=== PATIENT | female | born 1995 | race Caucasian/White ===

== ENCOUNTER → 2022-04-06 | Outpatient (CLI) | payer OTHER, SELFPAY ==
[2022-04-14 08:55] LABS: HPV Reflexed? NOT INDICATED
== END | disposition home or self-care (01) ==
LOC: LABSPEC 11:13
PROVIDERS: PCP Internal Medicine; Visit Provider Obstetrics & Gynecology
DX: Z12.4 Encounter for screening for malignant neoplasm of cervix (principal)
CPT/HCPCS: 88175; G0145

== ENCOUNTER → 2022-10-03 | Outpatient (CLI) | payer OTHER, SELFPAY ==
[2022-10-05 08:12] LABS: Chlamydia By Nucleic Acid AMP Negative (Negative); Gonococcus By Nucleic Acid AMP Negative (Negative)
== END | disposition home or self-care (01) ==
LOC: LABSPEC 11:12
PROVIDERS: Referring Provider Obstetrics & Gynecology; Visit Provider Obstetrics & Gynecology
DX: O09.90 Supervision of high risk pregnancy, unspecified, unspecified trimester (principal); Z3A.00 Weeks of gestation of pregnancy not specified
CPT/HCPCS: 87086; 87491; 87591

== ENCOUNTER → 2022-10-10 | Outpatient (CLI) | payer OTHER, SELFPAY ==
[2022-10-10 08:28] LABS: Absolute Lymphocyte Count 1.72 X10^3/uL (0.83-4.51); Absolute Neutrophil Count 8.5 X10^3/uL (2.0-7.7); Basophil# 0.03 X10^3/uL; Basophil% 0.3 % (0-1); Eosinophil# 0.05 X10^3/uL; Eosinophils% 0.5 % (0-5); Hematocrit 39.9 % (37-47); Hemoglobin 13.1 g/dL (12.0-15.0); Lymphocyte # 1.72 X10^3/ul (0.83-4.51); Lymphocyte % 15.7 % (19-41); Mean Corp Hgb Conc 32.8 g/dL (32-36); Mean Corpuscular Hgb 29.6 pg (27.0-32.0); Mean Corpuscular Volume 90.1 fL (81-99); Mean Platelet Vol. 9.5 fl (6.2-12.0); Monocyte# 0.65 X10^3/uL; Monocyte% 5.9 % (0-10); NRBC Flagged by Analyzer 0 % (0-5); Neutrophil # 8.48 X10^3/uL (2.7-7.7); Neutrophil % 77.2 % (47-70); Platelet Count 233 K/mm3 (150-450); RBC Distribution Width CV 13.2 % (11.6-14.6); RBC Distribution Width SD 43.9 fl (35.1-43.9); Red Blood Count 4.43 M/mm3 (4.2-5.4)
[2022-10-10 08:55] LABS: Glucose Challenge Gest 1H 50g 75 mg/dL (70-140)
[2022-10-10 16:06] LABS: HIV - WCH Non-Reactive (Nonreactive); Hepatitis B Surface Antigen Non-Reactive (Nonreactive); Hepatitis C Antibody Non-Reactive (Nonreactive); Rubella IgG Reactive (Nonreactive); Syphilis Antibodies Non-reactive
== END | disposition home or self-care (01) ==
LOC: PAVLAB 08:02
PROVIDERS: Referring Provider Obstetrics & Gynecology; Visit Provider Obstetrics & Gynecology
DX: O09.90 Supervision of high risk pregnancy, unspecified, unspecified trimester (principal); Z3A.00 Weeks of gestation of pregnancy not specified
CPT/HCPCS: 36415; 82950; 85025; 86703; 86762; 86780; 86803; 86850; 86900; 86901; 87340

== ENCOUNTER → 2022-11-22 | Outpatient (CLI) | payer OTHER, SELFPAY ==
--- NOTE | 2022-11-22 14:17 | US_ITS ---
STUDY: SECOND AND THIRD TRIMESTER OBSTETRICAL ULTRASOUND - LIMITED REASON FOR EXAM: Female, 27 years old dating LMP: 08/06/2022 PRIOR ULTRASOUND: None. TECHNIQUE: Transabdominal and Transvaginal TECHNICAL QUALITY: Adequate. FINDINGS: There is a single intrauterine fetus. The fetus is in an transverse lie with the head on the maternal left side. There is demonstrated cardiac activity with a heart rate of 162 bpm. There is a subjectively normal amniotic fluid volume. The largest amniotic fluid pocket measures 5.3 cm. The placenta is posterior and fundal, not low-lying There are Grade 0 placental changes. The cervix was not measured BIOMETRY: BPD: 2.8 cm: 15 weeks, 0 days HC: 10.2 cm: 14 weeks, 5 days AC: 8 cm: 14 weeks, 3 days FL: 1.57 centimeters: 14 weeks, 4 days age by current US: 14 weeks, 4 days. JADA by current US: 05/19/2023. Estimated weight: 99 grams, +/- 15 grams, 4 percentile. US/OB Limited With Biometrics IMPRESSION: Single live intrauterine at 14 weeks, 4 days by current ultrasound with JADA of 05/19/2023. Heart rate of 162 bpm. No suspicious sonographic findings Electronically Signed: Kameron Christianson MD at 21:10 EDT ,
== END | disposition home or self-care (01) ==
LOC: OPUS 14:13
PROVIDERS: Referring Provider Obstetrics & Gynecology; Visit Provider Obstetrics & Gynecology
DX: O36.80X0 Pregnancy with inconclusive fetal viability, not applicable or unspecified (principal); Z3A.00 Weeks of gestation of pregnancy not specified
CPT/HCPCS: 76816

== ENCOUNTER → 2023-02-26 | Outpatient (CLI) | payer OTHER, SELFPAY ==
[2023-02-26 09:19] LABS: Absolute Lymphocyte Count 1.53 X10^3/uL (0.83-4.51); Basophil# 0.03 X10^3/uL; Basophil% 0.2 % (0-1); Eosinophil# 0.09 X10^3/uL; Eosinophils% 0.7 % (0-5); Hematocrit 37.1 % (37-47); Lymphocyte # 1.53 X10^3/ul (0.83-4.51); Lymphocyte % 12.4 % (19-41); Mean Corp Hgb Conc 32.3 g/dL (32-36); Mean Corpuscular Hgb 29.2 pg (27.0-32.0); Mean Corpuscular Volume 90.3 fL (81-99); Mean Platelet Vol. 10.2 fl (6.2-12.0); Monocyte# 0.62 X10^3/uL; NRBC Flagged by Analyzer 0 % (0-5); Neutrophil # 9.98 X10^3/uL (2.7-7.7); Platelet Count 246 K/mm3 (150-450); RBC Distribution Width CV 13.6 % (11.6-14.6); Red Blood Count 4.11 M/mm3 (4.2-5.4); White Blood Count 12.3 K/mm3 (4.4-11.0)
[2023-02-26 09:46] LABS: Glucose Challenge Gest 1H 50g 142 mg/dL (70-140)
[2023-02-26 10:19] LABS: HIV - WCH Non-Reactive (Nonreactive); Syphilis Antibodies Non-reactive
== END | disposition home or self-care (01) ==
LOC: LAB 08:59
PROVIDERS: PCP Internal Medicine; Referring Provider Nurse Practitioner Women's Health; Visit Provider Nurse Practitioner Women's Health
DX: O26.899 Other specified pregnancy related conditions, unspecified trimester (principal); Z67.91 Unspecified blood type, Rh negative; Z3A.00 Weeks of gestation of pregnancy not specified
CPT/HCPCS: 36415; 82950; 85025; 86703; 86780; 86850; 86900; 86901

== ENCOUNTER → 2023-03-05 | Outpatient (CLI) | payer OTHER, SELFPAY ==
--- OUTSIDE RECORDS SUMMARY | 2023-03-05 06:45 | XMS RPT_ITS | CCD ---
Author Name Unknown Address [address] [facility] [address] [place] [address] Organization [facility] Care Team Providers Care Advertising Sales Manager Name Role Phone Clare Yu Unavailable Unavailable Unavailable INGRID ANGEL Attending Unavailable TRINY CASTANEDA Referring Unavailabl e CLARE YU Primary Care Unavailable Medications Completed/Discontinued Medications Medication Drug Class(es) Dates Sig (Normalized) Sig (Original) Apri 0.15-30 MG-MCG Oral Tablet (1 source) Start: 07-31-2019 take 1 tablet by mouth once daily Apri 0.15-30 MG-MCG Oral Tablet TAKE 1 TABLET BY MOUTH EVERY DAY Quantity: 84 Refills: 2 Ordered: 06-Jul-2020 Marin Martin DO Start : 31-Jul-2019 Active doxylamine succinate 25 mg oral tablet (19 sources) Start: 12-24-2020 take 1 tablet by mouth at bedtime Unisom SleepTabs 25 MG Oral Tablet TAKE 1 TABLET AT BEDTIME. Quantity: 30 Refills: 4 Ordered: 24-Dec-2020 Marin Martin DO Start : 24-Dec-2020 Active loratadine 10 mg oral tablet (1 source) take 1 tablet by mouth once daily as needed Loratadine 10 MG Oral Tablet TAKE 1 TABLET DAILY NEEDED. Quantity: 0 Refills: 0 Ordered: 24-Apr-2019 DO Active PNV Plus Multivitamin TABS (20 sources) PNV Plu s Multivitamin TABS Quantity: 0 Refills: 0 Ordered: 24-Dec-2020 DO Active valACYclovir 1000 mg oral tablet (12 sources) Herpesvirus Nucleoside Analog DNA Polymerase Inhibitor, Herpes Simplex Virus Nucleoside Analog DNA Polymerase Inhibitor, Herpes Zoster Virus Nucleoside Analog DNA Polymerase Inhibitor Start: 02-14-2021 take 1 tablet by mouth three times daily valACYclovir HCl - 1 GM Oral Tablet TAKE 1 TABLET 3 TIMES DAILY. Quantity: 21 Refills: 0 Ordered: 14-Feb-2021 Clare Yu DO Start : 14-Feb-2021 Active vitamin b6 50 mg oral tablet (20 sources) Start: 12-24-2020 take 1 tablet by mouth twice daily B-6 50 MG Oral Tablet TAKE 1 TABLET TWICE DAILY. Quantity: 60 Refills: 6 Ordered: 24-Dec-2020 Marin Martin DO Start : 24-Dec-2020 Active Problems Active Problems Problem Classification Problem Date Documented Da te Episodic/Chronic Cancer of cervix (20 sources) Cervical atypism; Translations: [Papanicolaou smear of cervix with atypical squamous cells of undetermined significance (ASC-US)] Episodic Contraceptive and procreative management (20 sources) Patient encounter status; Translations: [Other general counseling and advice on contraceptive management] Episodic Diabetes mellitus without complication (1 source) Abnormal glucose tolerance test; Translations: [Impaired glucose tolerance test (oral)] Episodic Diabetes or abnormal glucose tolerance complicating ; childbirth; or the puerperium (13 sources) Gestational diabetes mellitus; Translations: [Abnormal glucose tolerance of mother, antepartum condition or complication] Episodic Fluid and electrolyte disorders (17 sources) Dehydration; Translations: [Dehydration] Episodic Menstrual disorders (2 sources) Secondary amenorrhea; Translations: [Absence of menstruation] Chronic Other aftercare (1 source) Surgical follow-up; Translations: [Follow-up examination, following surgery, unspecified] Episodic Other complications of ; puerperium affecting management of mother (3 sources) Deliveries by ; Translations: [ delivery, without mention of indication, unspecified as to episode of care or not applicable] Episodic Past or Other Problems Problem Classification Problem Date Documented Date Episodic/Chronic Other complications of (19 sources) RhD negative; Translations: [Other specified complications of , antepartum condition or complication] Resolved: 09-12-2021 Episodic Results Test Name Value Interpretation Reference Range Facil ity Vital Signs Date Time Vital Sign Value Performing Clinician Faci lity 09-12-2021 10:03-0400 Body height 162.56 cm Clare Yu Work Phone: [address] Work Phone: 09-12-2021 10:03-0400 Body mass index (BMI) [Ratio] 25.49 kg/m2 Clare S [employer] Work Phone: [place] [address] [address] Work Phone: 09-12-2021 10:03-0400 Body surface area Derived from formula 1.72 m2 Clare S [employer] Work Phone: [place] [address] [address] Work Phone: 09-12-2021 10:03-0400 Body weight 67.36 kg Clare S [employer] Work Phone: [place] [address] [address] Work Phone: 09-12-2021 10:03-0400 Diastolic blood pressure 80 mm[Hg] Clare S [employer] Work Phone: [place] [address] [address] Work Phone: 09-12-2021 10:03-0400 Systolic blood pressure 110 mm[Hg] Clare S [employer] Work Phone: [place] [address] [address] Work Phone: 08-17-2021 11:15-0400 Body height 162.56 cm Clare S [employer] Work Phone: [place] [address] [address] Work Phone: 08-17-2021 11:15-0400 Body mass index (BMI) [Ratio] 25.92 kg/m2 Clare S [employer] Work Phone: [place] [address] [address] Work Phone: 08-17-2021 11:15-0400 Body surface area Derived from formula 1.74 m2 Clare S [employer] Work Phone: [place] [address] [address] Work Phone: 08-17-2021 11:15-0400 Body weight 68.5 kg Clare S [employer] Work Phone: [place] [address] [address] Work Phone: 08-17-2021 11:15-0400 Diastolic blood pressure 80 mm[Hg] Clare S [employer] Work Phone: [place] [address] [address] Work Phone: 08-17-2021 11:15-0400 Systolic blood pressure 118 mm[Hg] Clare S [employer] Work Phone: [place] [address] [address] Work Phone: 08-01-2021 10:32-0400 Body height 162.56 cm Clare S [employer] Work Phone: [place] [address] [address] Work Phone: 08-01-2021 10:32-0400 Body mass index (BMI) [Ratio] 29.44 kg/m2 Clare S [employer] Work Phone: [place] [address] [address] Work Phone: 08-01-2021 10:32-0400 Body surface area Derived from formula 1.83 m2 Clare S [employer] Work Phone: [place] [address] [address] Work Phone: 08-01-2021 10:32-0400 Body weight 77.8 kg Clare S [employer] Work Phone: [place] [address] [address] Work Phone: 08-01-2021 10:32-0400 Diastolic blood pressure 76 mm[Hg] Clare S [employer] Work Phone: [place] [address] [address] Work Phone: 08-01-2021 10:32-0400 Systolic blood pressure 120 mm[Hg] Clare S [employer] Work Phone: [place] [address] [address] Work Phone: 07-29-2021 10:11-0400 Body height 162.56 cm Lcare S [employer] Work Phone: [place] [address] [address] Work Phone: 07-29-2021 10:11-0400 Body mass index (BMI) [Ratio] 29.06 kg/m2 Clare S [employer] Work Phone: [place] [address] [address] Work Phone: 07-29-2021 10:11-0400 Body surface area Derived from formula 1.82 m2 Clare S [employer] Work Phone: [place] [address] [address] Work Phone: 07-29-2021 10:11-0400 Body weight 76.8 kg Clare S [employer] Work Phone: [place] [address] [address] Work Phone: 07-29-2021 10:11-0400 Diastolic blood pressure 80 mm[Hg] Clare S [employer] Work Phone: [place] [address] [address] Work Phone: 07-29-2021 10:11-0400 Systolic blood pressure 120 mm[Hg] Clare S [employer] Work Phone: [place] [address] [address] Work Phone: 07-22-2021 10:05-0400 Body height 162.56 cm Clare S [employer] Work Phone: [place] [address] [address] Work Phone: 07-22-2021 10:05-0400 Body mass index (BMI) [Ratio] 28.65 kg/m2 Clare S [employer] Work Phone: [place] [address] [address] Work Phone: 07-22-2021 10:05-0400 Body surface area Derived from formula 1.81 m2 Clare S [employer] Work Phone: [place] [address] [address] Work Phone: 07-22-2021 10:05-0400 Body weight 75.7 kg Clare S [employer] Work Phone: [employer] [place] [address] [address] Work Phone: 07-22-2021 10:05-0400 Diastolic blood pressure 82 mm[Hg] Clare S [employer] Work Phone: [place] [address] [address] Work Phone: 07-22-2021 10:05-0400 Systolic blood pressure 126 mm[Hg] Clare S [employer] [facility]: [facility] [employer] Work Phone: 07-15-2021 09:58-0400 Body height 162.56 cm Claer S [employer] Work Phone: [facility] [employer] Work Phone: 07-15-2021 09:58-0400 Body mass index (BMI) [Ratio] 28.46 kg/m2 Clare S [employer] Work Phone: [facility] [employer] Work Phone: 07-15-2021 09:58-0400 Body surface area Derived from formula 1.81 m2 Clare S [employer] Work Phone: [facility] [address] [address] Work Phone: 07-15-2021 09:58-0400 Body weight 75.2 kg Clare S [employer] Work Phone: [facility] [employer] Work Phone: 07-15-2021 09:58-0400 Diastolic blood pressure 80 mm[Hg] Clare S [employer] Work Phone: [employer] [facility] [employer] Work Phone: 07-15-2021 09:58-0400 Systolic blood pressure 120 mm[Hg] Clare S [employer] Work Phone: [facility] [place] [address] [address] Work Phone: 07-08-2021 08:45-0400 Body height 162.56 cm Clare S [employer] Work Phone: [employer] Work Phone: 07-08-2021 08:45-0400 Body mass index (BMI) [Ratio] 28.46 kg/m2 Clare [facility] [employer] Work Phone: [facility] Work Phone: 07-08-2021 08:45-0400 Body surface area Derived from formula 1.81 m2 Clare S [employer] Work Phone: [facility] Work Phone: 07-08-2021 08:45-0400 Body weight 75.2 kg Clare S [employer] Work Phone: [facility] [employer] Work Phone: 07-08-2021 08:45-0400 Diastolic blood pressure 80 mm[Hg] Clare S [employer] Work Phone: [facility] Work Phone: 07-08-2021 08:45-0400 Systolic blood pressure 108 mm[Hg] Clare S [employer] Work Phone: [facility] Work Phone: 07-01-2021 10:03-0400 Body height 162.56 cm Clare S [employer] Work Phone: [place] Work Phone: 07-01-2021 10:03-0400 Body mass index (BMI) [Ratio] 28.34 kg/m2 Clare [facility] [employer] Work Phone: [place] Work Phone: 07-01-2021 10:03-0400 Body surface area Derived from formula 1.8 m2 Clare S [employer] Work Phone: [employer] [place] [address] [address] Work Phone: 07-01-2021 10:03-0400 Body weight 74.9 kg Clare S [employer] Work Phone: [place] [address] [address] Work Phone: 07-01-2021 10:03-0400 Diastolic blood pressure 64 mm[Hg] Clare [facility] [employer] Work Phone: [place] [address] [address] Work Phone: 07-01-2021 10:03-0400 Systolic blood pressure 118 mm[Hg] Clare S [employer] Work Phone: [place] [address] [address] Work Phone: 06-17-2021 10:18-0400 Body height 162.56 cm Clare S [employer] Work Phone: [place] [address] [address] Work Phone: 06-17-2021 10:18-0400 Body mass index (BMI) [Ratio] 27.66 kg/m2 Clare [facility] [employer] Work Phone: [place] [address] [address] Work Phone: 06-17-2021 10:18-0400 Body surface area Derived from formula 1.78 m2 Clare S [employer] Work Phone: [address] Work Phone: 06-17-2021 10:18-0400 Body weight 73.1 kg Clare S [employer] Work Phone: [place] [address] [address] Work Phone: 06-17-2021 10:18-0400 Diastolic blood pressure 64 mm[Hg] Clare S [employer] Work Phone: [place] [address] [address] Work Phone: 06-17-2021 10:18-0400 Systolic blood pressure 118 mm[Hg] Clare [facility] [employer] Work Phone: [place] [address] [address] Work Phone: 06-03-2021 11:06-0400 Body height 162.56 cm Clare S [employer] Work Phone: [place] [address] [address] Work Phone: 06-03-2021 11:06-0400 Body mass index (BMI) [Ratio] 27.62 kg/m2 Clare [facility] [employer] Work Phone: [place] [address] [address] Work Phone: 06-03-2021 11:06-0400 Body surface area Derived from formula 1.78 m2 Clare S [employer] Work Phone: [place] [address] [address] Work Phone: 06-03-2021 11:06-0400 Body weight 73 kg Clare S [employer] Work Phone: [place] [address] [address] Work Phone: 06-03-2021 11:06-0400 Diastolic blood pressure 70 mm[Hg] Clare S [employer] Work Phone: [place] [address] [address] Work Phone: 06-03-2021 11:06-0400 Systolic blood pressure 112 mm[Hg] Clare S [employer] Work Phone: [place] [address] [address] Work Phone: 05-23-2021 11:02-0400 Body height 162.56 cm Clare S [employer] Work Phone: [place] [address] [address] Work Phone: 05-23-2021 11:02-0400 Body mass index (BMI) [Ratio] 27.59 kg/m2 Clare [facility] [employer] Work Phone: [place] [address] [address] Work Phone: 05-23-2021 11:02-0400 Body surface area Derived from formula 1.78 m2 Clare S [employer] Work Phone: [place] [address] [address] Work Phone: 05-23-2021 11:02-0400 Body weight 72.9 kg Clare S [employer] Work Phone: [place] [address] [address] Work Phone: 05-23-2021 11:02-0400 Diastolic blood pressure 78 mm[Hg] Clare S [employer] Work Phone: [place] [address] [address] Work Phone: 05-23-2021 11:02-0400 Systolic blood pressure 112 mm[Hg] Clare S [employer] Work Phone: [place] [address] [address] Work Phone: 05-13-2021 13:52-0400 Body height 162.56 cm Clare S [employer] Work Phone: [place] [address] [address] Work Phone: 05-13-2021 13:52-0400 Body mass index (BMI) [Ratio] 27.49 kg/m2 Clare [facility] [employer] Work Phone: [place] [address] [address] Work Phone: 05-13-2021 13:52-0400 Body surface area Derived from formula 1.78 m2 Clare S [employer] Work Phone: [place] [address] [address] Work Phone: 05-13-2021 13:52-0400 Body weight 72.63 kg Clare S [employer] Work Phone: [place] [address] [address] Work Phone: 05-13-2021 13:52-0400 Diastolic blood pressure 78 mm[Hg] Clare S [employer] Work Phone: [place] [address] [address] Work Phone: 05-13-2021 13:52-0400 Systolic blood pressure 110 mm[Hg] Clare [facility] [employer] Work Phone: [place] [address] [address] Work Phone: 04-15-2021 14:56-0500 Body height 162.56 cm Clare S [employer] Work Phone: [place] [address] [address] Work Phone: 04-15-2021 14:56-0500 Body mass index (BMI) [Ratio] 26.3 kg/m2 Clare [facility] [employer] Work Phone: [place] [address] [address] Work Phone: 04-15-2021 14:56-0500 Body surface area Derived from formula 1.75 m2 Clare S [employer] Work Phone: [place] [address] [address] Work Phone: 04-15-2021 14:56-0500 Body weight 69.5 kg Clare S [employer] Work Phone: [place] [address] [address] Work Phone: 04-15-2021 14:56-0500 Diastolic blood pressure 70 mm[Hg] Clare S [employer] Work Phone: [place] [address] [address] Work Phone: 04-15-2021 14:56-0500 Systolic blood pressure 112 mm[Hg] Clare S [employer] Work Phone: [place] [address] [address] Work Phone: 03-18-2021 14:56-0500 Body height 162.56 cm Clare S [employer] Work Phone: [place] [address] [address] Work Phone: 03-18-2021 14:56-0500 Body mass index (BMI) [Ratio] 25.28 kg/m2 Clare S [employer] Work Phone: [place] [address] [address] Work Phone: 03-18-2021 14:56-0500 Body surface area Derived from formula 1.72 m2 Clare Granados [employer] Work Phone: [address] Work Phone: 03-18-2021 14:56-0500 Body temperature 97.1 [degF] Clare Granados [employer] Work Phone: [address] Work Phone: 03-18-2021 14:56-0500 Body weight 66.8 kg Clare Granados [employer] Work Phone: [address] Work Phone: 03-18-2021 14:56-0500 Diastolic blood pressure 78 mm[Hg] Clare Granados [employer] Phone: [address] Work Phone: 03-18-2021 14:56-0500 Systolic blood pressure 118 mm[Hg] Clare Granados [employer] Work Phone: [address] Work Phone: 02-18-2021 14:58-0500 Body height 162.56 cm Clare Granados [employer] Phone: [employer] [facility] Work Phone: 02-18-2021 14:58-0500 Body mass index (BMI) [Ratio] 24.48 kg/m2 Clare Granados [employer] Work Phone: [employer] Work Phone: 02-18-2021 14:58-0500 Body surface area Derived from formula 1.69 m2 Clare Garnados [employer] Phone: [employer] [facility] Work Phone: 02-18-2021 14:58-0500 Body temperature 95.3 [degF] Clare S [employer] Phone: [facility] Work Phone: 02-18-2021 14:58-0500 Body weight 64.7 kg Clare Granados [employer] Work Phone: [facility] Work Phone: 02-18-2021 14:58-0500 Diastolic blood pressure 60 mm[Hg] Clare S [employer] Work Phone: [facility] Work Phone: 02-18-2021 14:58-0500 Systolic blood pressure 110 mm[Hg] Clare S [employer] Work Phone: [facility] Work Phone: 02-14-2021 15:17-0500 Body height 162.56 cm Clare S [employer] Work Phone: [facility] Work Phone: 02-14-2021 15:17-0500 Body mass index (BMI) [Ratio] 23.75 kg/m2 Clare Granados [employer] Work Phone: [facility] Work Phone: 02-14-2021 15:17-0500 Body surface area Derived from formula 1.67 m2 Clare S [employer] Work Phone: [facility] Work Phone: 02-14-2021 15:17-0500 Body temperature 97.1 [degF] Clare S [employer] Work Phone: [facility] Work Phone: 02-14-2021 15:17-0500 Body weight 62.77 kg Clare S [employer] Work Phone: [facility] Work Phone: 02-14-2021 15:17-0500 Diastolic blood pressure 76 mm[Hg] Clare S [employer] Work Phone: [facility] Work Phone: 02-14-2021 15:17-0500 Heart rate 125 /min Clare Yu [employer] Phone: [facility] Work Phone: 02-14-2021 15:17-0500 SaO2% (BldA) [Mass fraction] 97 % Clare Granados [employer] Phone: [facility] Work Phone: 02-14-2021 15:17-0500 Systolic blood pressure 124 mm[Hg] Clare Granados [employer] Phone: [facility] Work Phone: 01-21-2021 15:08-0500 Body height 162.56 cm Clare Granados [employer] Phone: [address] Work Phone: 01-21-2021 15:08-0500 Body mass index (BMI) [Ratio] 23.84 kg/m2 Clare Granados [employer] Phone: [address] Work Phone: 01-21-2021 15:08-0500 Body surface area Derived from formula 1.68 m2 Clare Granados [employer] Phone: [address] Work Phone: 01-21-2021 15:08-0500 Body temperature 97.3 [degF] Clare Granados [employer] Phone: [address] Work Phone: 01-21-2021 15:08-0500 Body weight 63 kg Clare Yu [employer] Phone: [address] Work Phone: 01-21-2021 15:08-0500 Diastolic blood pressure 80 mm[Hg] Clare Granados [employer] Work Phone: [employer] Work Phone: 01-21-2021 15:08-0500 Systolic blood pressure 120 mm[Hg] Clare Granados [employer] Work Phone: [employer] Work Phone: 12-24-2020 09:37-0500 Body height 162.56 cm Clare Granados [employer] Work Phone: [employer] Work Phone: 12-24-2020 09:37-0500 Body mass index (BMI) [Ratio] 23.35 kg/m2 Clare Granados [employer] Work Phone: [employer] Work Phone: 12-24-2020 09:37-0500 Body surface area Derived from formula 1.66 m2 Clare Granados [employer] Work Phone: [employer] Work Phone: 12-24-2020 09:37-0500 Body temperature 97.5 [degF] Clare Granados [employer] Phone: [employer] Work Phone: 12-24-2020 09:37-0500 Body weight 61.7 kg Clare Granados [employer] Work Phone: [employer] Work Phone: 12-24-2020 09:37-0500 Diastolic blood pressure 80 mm[Hg] Clare Roberta [employer] Work Phone: [employer] Work Phone: 12-24-2020 09:37-0500 Systolic blood pressure 120 mm[Hg] Clare Granados [employer] Work Phone: [employer] Work Phone: Encounters Encounter Date Encounter Type Care Provider Facility Start: 12-21-2022 End: 12-21-2022 ambulatory INGRID Corrales ANGEL [facility] Start: 09-14-2021 Chart Update Clare Najera al Work Phone: [facility] [address] Work Phone: Start: 09-12-2021 Patient encounter procedure Clare S [employer] Work Phone: [facility] [address] Work Phone: Start: 08-17-2021 Postop follow up vis it related to original px Clare S [employer] Work Phone: [facility] [address] Work Phone: Start: 08-01-2021 Office outpatient vi sit 10 minutes Clare S [facility] [employer] Work Phone: Start: 07-29-2021 Office outpatient vi sit 15 minutes Clare S [employer] Work Phone: [facility] [address] Work Phone: Start: 07-22-2021 Office outpatient vi sit 10 minutes Clare S [employer] Work Phone: [facility] [address] Work Phone: Start: 07-18-2021 Chart Update Clare Najera al Work Phone: [facility] [address] Work Phone: Start: 07-15-2021 Office outpatient vi sit 10 minutes Clare S [employer] Work Phone: [facility] [address] Work Phone: Start: 07-08-2021 Office outpatient vi sit 10 minutes Clare S [employer] Work Phone: [facility] [address] Work Phone: Start: 07-01-2021 Chart Update Clare S Reinaldo al Work Phone: [address] Work Phone: Start: 06-03-2021 Office outpatient vi sit 10 minutes Clare S [employer] Work Phone: [address] Work Phone: Start: 05-24-2021 Nutrition therapy Clare S R oyal Work Phone: [facility] Work Phone: Start: 05-23-2021 Office outpatient vi sit 15 minutes Clare S [employer] Work Phone: [address] Work Phone: Start: 05-13-2021 Chart Update Clare S Reinaldo al Work Phone: [address] Work Phone: Start: 03-21-2021 Chart Update Clare S Reinaldo al Work Phone: [address] Work Phone: Start: 03-18-2021 Office outpatient vi sit 10 minutes Clare S [employer] Work Phone: [address] Work Phone: Start: 03-03-2021 Office outpatient vi sit 15 minutes Clare S [employer] Work Phone: [facility] Work Phone: Start: 02-14-2021 Office outpatient vi sit 15 minutes Clare S [employer] Work Phone: [facility] Work Phone: Start: 01-24-2021 AUDIT Clare S Reinaldo al Work Phone: [address] Work Phone: Start: 01-21-2021 Office outpatient vi sit 15 minutes Clare S [employer] Work Phone: [facility] Work Phone: Start: 01-15-2021 Rx Renewal Clare Valdiviay al Work Phone: [employer] Work Phone: Start: 12-24-2020 Office outpatient vi sit 15 minutes Clare S [employer] Work Phone: [employer] Work Phone: Start: 07-06-2020 Rx Renewal Clare Valdiviay al Work Phone: [facility] Work Phone: Menarche Clare Granados [employer] Work Phone: [facility] [employer] Phone: Procedures Date Procedure Procedure Detail Performing Clinician Start: 08-02-2021 Antibody screen Plan of Treatment Date Care Activity Detail Author Start: 09-13-2022 Patient encounter procedure ANNUAL, Provider: Christiane Conte, Status: Pen, Time: 10:30 AM [facility] [employer] Phone: Start: 09-12-2021 PPV, Provider: Marin Martin, Status: Pen, Time: 10:00 AM PPV, Provider: Marin Martin, Status: Pen, Time: 10:[address] [place] [employer] Phone: Start: 08-05-2021 EPVOB, Provider: Marin Martin, Status: Pen, Time: 10:00 AM EPVOB, Provider: Marin Martin, Status: Pen, Time: 10:00 AM [employer] Phone: Start: 08-01-2021 EPVOB, Provider: Marin Martin, Status: Pen, Time: 10:30 AM EPVOB, Provider: Marin Martin, Status: Pen, Time: 10:30 AM [employer] Phone: Start: 07-29-2021 EPVOB, Provider: Christiane Conte, Status: Pen, Time: 10:15 AM EPVOB, Provider: Christiane Conte, Status: Pen, Time: 10:15 AM [employer] Work Phone: Start: 07-22-2021 EPVOB, Provider: Marin Martin, Status: Pen, Time: 10:00 AM EPVOB, Provider: Marin Martin, Status: Pen, Time: 10:[address] [place] [facility] Work Phone: Start: 07-15-2021 EPVOB, Provider: Marin Martin, Status: Pen, Time: 10:00 AM EPVOB, Provider: Marin Martin, Status: Pen, Time: 10:00 AM [employer] Work Phone: Start: 07-08-2021 EPVOB, Provider: Marin Martin, Status: Pen, Time: 8:45 AM EPVOB, Provider: Marin Martin, Status: Pen, Time: 8:[address] [place] [facility] Work Phone: Start: 07-01-2021 EPVOB, Provider: Christiane Conte, Status: Pen, Time: 10:15 AM EPVOB, Provider: Christiane Conte, Status: Pen, Time: 10:[address] [place] [facility] Work Phone: Start: 06-24-2021 EPVOB, Provider: Marin Martin, Status: Pen, Time: 9:00 AM EPVOB, Provider: Marin Martin, Status: Pen, Time: 9:00 AM [employer] Work Phone: Start: 06-17-2021 EPVOB, Provider: Trae Mohan, Status: Pen, Time: 10:30 AM EPVOB, Provider: Trae Mohan, Status: Pen, Time: 10:[address] [place] Work Phone: Start: 06-10-2021 EPVOB, Provider: Trae Mohan, Status: Pen, Time: 8:45 AM EPVOB, Provider: Trae Mohan, Status: Pen, Time: 8:45 AM [place] [address] [address] [employer] Phone: Start: 06-03-2021 EPVOB, Provider: Marin Martin, Status: Pen, Time: 11:00 AM EPVOB, Provider: Marin Martin, Status: Pen, Time: 11:00 AM [address]: Start: 05-27-2021 EPVOB, Provider: Christiane Conte, Status: Pen, Time: 8:30 AM EPVOB, Provider: Christiane Conte, Status: Pen, Time: 8:30 AM [address]: Start: 04-15-2021 EPVOB, Provider: Marin Martin, Status: Pen, Time: 3:00 PM EPVOB, Provider: Marin Martin, Status: Pen, Time: 3:00 [address] Work Phone: Start: 03-18-2021 EPVOB, Provider: Marin Martin, Status: Pen, Time: 2:30 PM EPVOB, Provider: Marin Martin, Status: Pen, Time: 2:30 PM [facility] Work Phone: Start: 03-18-2021 Patient encounter procedure ANNUAL, Provider: Marin Martin, Status: Pen, Time: 8:[address] [place] Phone: Start: 02-18-2021 EPVOB, Provider: Marin Martin, Status: Pen, Time: 2:45 PM EPVOB, Provider: Marin Martin, Status: Pen, Time: 2:45 PM [address] Work Phone: Start: 01-21-2021 EPVOB, Provider: Marin Martin, Status: Pen, Time: 2:45 PM EPVOB, Provider: Marin Martin, Status: Bart, Time: 2:45 PM [place] [address] [address] Work Phone: Immunizations Immunization Date Immunization Notes Care Provider Ray peters 11-25-2020 influenza, seasonal, injectable Clare [employer] Work Phone: [facility] Work Phone: Payers Date Payer Category Payer Unknown [id number] Private Health Insurance [id number] Unknown Social History Date Type Detail Facility Non-smoker Non-smoker [place] [address] [address] Work Phone: History of Present illness Narrative 09-12-2021 Note Date & Type Note Facility 09-12-2021 History of Present illness Narrative 26-year-old presents for 6-week status primary for arrest of dilation at 6 cm. Patient doing well. Patient's was complicated by GDM A1. Patient notes doing well. Breast-feeding consistently. Patient notes moods doing well. Not sexually active. No cycle yet. Patient not interested in control. Patient has no other acute concerns [place] [address] [address] Work Phone: Discharge summary note 08-05-2021 Note Date & Type Note Facility 08-05-2021 Note Send Summary: Note Recipients: none Discharge: Summary: Admission Date: .02-Aug-2021 05:48:00 Discharge Date: 05-Aug-2021 Attending Physician at Discharge: Marin Martin Admission Reason: Term Final Discharge Diagnoses: Status post primary low transverse section Procedures: Primary low transverse section Condition at Discharge: Satisfactory Disposition at Discharge: .Home Vital Signs: T PRBPMAPSpO2 [id number]% Date/Time08/05 3:477/ 3:47/ 3:47/ 3:477/ 3:47/ 3:47 Range(36.5C - 37.1C ) (67 - 109 ) (14 - 18 ) (112 - 138 )/ (57 - 81 ) (82 - 104 ) (90% - 100% ) Highest temp of 37.1 C was recorded at 7 0:17 Date: Weight/Scale Type:Height: 02-Aug-2021 04:2178.2 kg / aewmdplm532.1 cm Physical Exam: Lungs: Clear bilaterally Heart: Regular rate and rhythm Abdomen: Soft and nontender Hospital Course: Patient underwent a primary section for viable male on August 03, 2021. Patient is breast-feeding and was discharged on postop day 2. Immunizations: Immunizations: 01-Jul-2021 Tdap: Immunizations, 01-Jul-2021 Discharge Information: and Continuing Care: Lab Results - Pending: None Radiology Results - Pending: None [place] Suicide Risk: negative Discharge Instructions: Activity: Return to normal activity as tolerated Nutrition/Diet: Regular Follow Up Appointments: Follow-Up - OB Provider: Physician/Dept/Service: OB Provider Dr. Martin Call to Schedule in: 2 weeks, post op Discharge Medications: Home Medication Multivitamins - null ibuprofen 600 mg oral tablet - 1 tab(s) orally every 6 hours as needed pain PRN Medication DNR Status: Code StatusCode Status order at time of discharge: Full Code Electronic Signatures: Trae Mohan) (Signed 05-Aug-2021 08:02) Authored: Send Summary, Summary Content, Immunizations, Ongoing Care, DNR Status, Note Completion Last Updated: 05-Aug-2021 08:02 by Trae Mohan) [facility] Clinical Note 08-03-2021 Note Date & Type Note Facility 08-03-2021 Note Clinical Event: Clinical Event Note: TopicProgress note Details Patient doing well. Some dizziness this morning but since resolved. Little bit of a nap ate some food. Has not voided with Ricks out yet. Pain controlled. Bleeding minimal. Patient is no other acute concerns Vital signs stable General no acute distress cardiovascular regular rate rhythm. Lungs clear to auscultation. But soft appropriate tender nondistended minimal bowel sounds. Negative calf pain Assessment and plan 1) postop-continue increase ambulation. Will monitor. Labs in the morning. Tolerating p.o. Awaiting bowel function Electronic Signatures: Marin Martin) (Signed 03-Aug-2021 12:51) Authored: Clinical Event Note Last Updated: 03-Aug-2021 12:51 by Marin Martin) [facility] Clinical Note 08-03-2021 Note Date & Type Note Facility 08-03-2021 Note Provider Information : Maternal Delivery Information: Delivery Type: delivery Did this pt receive corticosteroids at any time during this : No Was intraamniotic infection diagnosed during this labor: no What antibiotic(s) were administered during labor and/or pre-incision: Azithromycin, Cefazolin Did this patient receive progesterone in any form to prevent premature delivery: no Rupture of Membranes: artificial Spontaneous Labor: no Induction or Scheduled : induction Is patient at delivery >/= to 37 to < 39 completed weeks of gestation: no Delivery Anesthesia: spinal Type: primary Schedule: non-scheduled / non-urgent Pre-op Dx: 39 weeks. GDMA1. Arrest of active phase Presentation/Lie: vertex Vertex Presentation: Left: occiput anterior Assisted Operative Delivery at : no Skin Incision Type: Pfannenstiel Uterine Incision Type: low transverse QBL (mL): 525 mL Blood Products Transfused during Delivery (indicate number of units given): none Urine Output (mL): 125 mL Placenta: spontaneous Choose Baby: A Cord Characteristics: nuchal cord; x1 loose Delayed Cord Clamping (equal to or greater than 30 seconds): yes Time until cord clamp: 30sec Day of Delivery (Baby A): 03-Aug-2021 Gestational Age at Delivery (wk.days): 39.1 Term: term 37.0 to 41.6 weeks Live : yes Post-op Dx: same as pre-op dx Delivery Provider: Marin Martin [employer] Sales: Christiane Conte Dictation: not applicable - note contains Operative Report Operative Report: 26yo G1 @ 39/0 induction of labor for GDM A1. Patient was due to Cytotec and Ricks bulb. Patient was ruptured and augmented with Pitocin. Patient mated to sick centimeters and was diagnosed with arrest of active phase of labor. Counseled her primary . Risk benefits alternatives discussed. Consent was obtained. Procedure: Pt was taken to the operating room. Time out was performed. Spinal anesthesia was found to be effective and pt placed in dorsal supine position with left tilt. Pt was prepped and draped in normal sterile fashion. A Pfannenstiel skin incision was performed and taken down to the layer of fascia with scalpel and bovie. The fascia was incised and opened sharply. The superior aspect of the fascia was grasped with Ondina clamps x two and underlying rectus muscles were with sharp and blunt dissection. Attention was then turned to the inferior aspect of fascia. It was grasped with Ondina clamps x two and underlying rectus muscles were with sharp and blunt dissection. Rectus muscle was in the midline sharply and parietal peritoneum was identified and entered blunty. Incision was extended sharply. Bladder blade placed. Vesicouterine peritoneum identified and a bladder flap created sharply. Bladder blade was reinserted. A transverse incision was made in the lower uterine segment. Infant was delivered through the hysterotomy without difficulty. The cord was clamped and cut. Infant was handed of to the waiting nurse. Placenta membrane and cord delivered intact and in toto. Uterus cleared of all clots and debris. Uterus was repaired with 0 Vicryl in continuous locking fashion with good hemostasis. Second layer of same suture was used to imbricate the first layer with good hemostasis. Gutters were cleared of all debris and clots. Parietal peritoneum reapproximated with 3-0 Vicryl in a continuos manner. Fascia was closed with 0 Vicryl in a continuous running manner with good hemostasis. Subcutaneous layer was closed with 3-0 Vicryl in an interrupted manner. Skin was closed with 3-0 Biosyn in a running fashion. Pt tolerated the procedure well. Sponge lap and instrument count was correct X2. Pt and transferred to recovery in stable condition. Debrief was performed. Dr. Conte was need for motta portion of the procedure for retraction, manipulation and dissection. Hemorrhage Risk Screen: Hemorrhage Low Risk Factors (T&S)patient with no medium or high risk factors(1) Hemorrhage Medium Risk Factors (T&S) (2 or more medium risks Go to High Risk section & obtain T&C)IOL with oxytocin or cervical ripening, Hemorrhage Risk Assessmenthemorrhage risks reviewed and additional factors added if applicable Hemorrhage Risk Score HighPatient is at High Risk for an OB hemorrhage. Order Type & Cross. Score Calculation - IT Use Only2 Electronic Signatures: Marin Martin) (Signed 03-Aug-2021 02:16) Authored: Provider Information, Hemorrhage Risk, Note Completion Last Updated: 03-Aug-2021 02:16 by Marin Martin (DO) References: 1. Data Referenced From History and Physical - OB 02-Aug-2021 08:18 [facility] Clinical Note 08-02-2021 Note Date & Type Note Facility 08-02-2021 Note HPI/OB History: Care Provider: Marin Martin HPI Descriptive Info: HPI Patient is a 26-year-old 1 para 0 at 39 weeks gestation with an EDC of 08/09/2021. The patient comes in for an induction secondary to gestational diabetes which is diet-controlled. Patient reports good movement no contractions that she can report no leaking of fluid no vaginal bleeding. Outside of the diabetes the has been uncomplicated Labs: Labs: Labs: Blood Typed Date: 02-Aug-2021 Blood Type: O negative Antibody Screen Results: negative Chlamydia Date: 21-Jan-2021 Chlamydia Results: negative Gonorrhea Date: 21-Jan-2021 Gonorrhea Results: negative Group B Strep Date: 15-Jul-2021 Strep Results: negative GCT (dd-mmm-yy): 13-May-2021 GCT result: 141 GTT - Extended (dd-mmm-yy): 20-May-2021 GTT - Extended - Fastin GTT - Extended - 1 hour: 180 GTT - Extended - 2 hour: 157 GTT - Extended - 3 hour: 121 HBsAG Date: 21-Jan-2021 HBsAG Results: negative HIV Date: 21-Jan-2021 HIV Results: negative Rubella Date: 21-Jan-2021 Rubella Results: nonimmune Rubella Comments: Result Value Negative Syphilis (mmm-dd-yyyy): 21-Jan-2021 Syphilis Results: negative Antepartum/: Antepartum/PP: Final [id number] Current EGA:39 Patient is > or = 35.0 wks EGAyes Determined byPerfecto EFW (kg)3.289 kilogram(s) EFW (lb)7 pound(s) EFW (oz)4 ounce(s) Presentationcephalic presentation verified bybedside ultrasound Vaginal BleedingNo Contractions/Abdominal PainNo Discharge/Loss of FluidNo MovementGood Hemorrhage Low Risk Factors (T&S)patient with no medium or high risk factors Hemorrhage Risk Assessmenthemorrhage risk completed on admission Hemorrhage Risk ScorePatient is at Low Risk for an OB hemorrhage. Order Type Screen. 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 Objective: Objective Information: T PRBPMAPSpO2 [id number]% Date/Time08/02 6: 8: 6: 8: 8: 6:14 Range(36.9C - 36.9C ) (91 - 92 ) (14 - 14 ) (125 - 138 )/ (78 - 89 ) (98 - 107 ) (97% - 97% ) Highest temp of 36.9 C was recorded at 08/02 6:13 Physical Exam by System: Constitutional: Awake alert and comfortable appearing Obstetric: grAvid uterus nontender Head/Neck: Full range of motion Respiratory/Thorax: Clear to auscultation with good air movement Cardiovascular: Regular rate and rhythm Genitourinary: Cervix 2 cm 75% -2 station soft and posterior Cee score 6 Musculoskeletal: With mobility of her extremities Psychological: Properly oriented with normal mood and affect Skin: No obvious lesions NST Interpretation - Baby A: Baseline [id number] Variabilitymoderate (amplitude range 6 to 25 bpm) AccelerationsPresent DecelerationsAbsent Recent Lab Results: Results: CBC: 08/02/2021 07:11 \ Hgb / \ 11.7 L / WBC Plt 10.3 202 / Hct \ / 35.0 L \ RBC: 4.16 MCV: 84 Assessment and Plan: Problem List: Additional Dx: Diet controlled gestational diabetes mellitus (GDM) in third trimester: 39 weeks gestation of : Assessment: Patient is a 26-year-old 1 para 0 at 39 weeks with an EDC of August 09, 2021. Patient comes in for induction secondary to gestational diabetes diet-controlled. Cervical ripening began with Ricks balloon and misoprostol intravaginally. Once cervix more favorable and balloon is out anticipate starting oxytocin. Cee score currently 6 tracing reassuring Gestational diabetes. Fasting sugar per patient 80 this morning. Continue monitoring glucose. 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 Data Referenced From Patient Profile - OB v3 02-Aug-2021 04:21 [facility] Progress note 08-13-2020 Note Date & Type Note Facility 08-13-2020 Note HNO ID: [id number] Author: Wilian Pérez V, DPM Service: ? Author Type: Physician Type: Progress Notes Filed: 08/13/2020 9:36 AM Note Text: HPI: Desiree presents status post a partial nail avulsion on the lateral border of both great toes. She relates that she has been doing well over the site and has had no issues. ROS: Constitutional: denies Nausea/Vominting/Fever. Eyes, Ears, Nose, and Throat: denies blurred vision, difficulty eating or tinnitis. Cardiovascular: denies TN, murmurs, HTN, CHF. GI: denies diarrhea/constipation. : denies incontinence/polyuria Dermatology: See HPI musculoskeletal: denies rheumatoid arthritis/gout. Respiratory: denies asthma/emphysema/pneumonia Psychiatric: denies anxiety/depression Neurological: denies memory loss or paralysis Endocrine: denies thyroid disorder or diabetes LOWER EXTREMITY EXAM: Patient A AND O X's 3, NAD. VASC: Palpable pedal pulses noted bilaterally. DERM: Partial nail avulsion site on the lateral aspect of both great toes are healing well. No signs of infection present at this time. Patient relates minimal discomfort on palpation over the surgical area. This is consistent with surgical intervention. ORTHO: Dorsiflexion/plantar flexion of foot at ankle level within normal limits. Inversion/eversion of bilateral feet within normal range as well. 5/5 in both extrinsics and intrinsic muscle groups. NEURO: Able to discern between light and dull touch on both feet. ASSESSMENT: Status post partial nail avulsion secondary to ingrowing nail border, lateral aspect of bilateral great toes TREATMENT/PLAN: -She is doing well. Follow-up as needed. [facility] Progress note 07-16-2020 Note Date & Type Note Facility 07-16-2020 Note HNO ID: [id number] Author: Wilian Pérez V, DPM Service: ? Author Type: Physician Type: Progress Notes Filed: 07/16/2020 8:58 AM Note Text: HPI: Desiree Nguyen presents with a chief complaint of ingrowing toenails on both great toes. She relates that they bother her intermittently for many years. She points towards the lateral border of both great toes. She states that she has been able to manage it in the past but is getting more difficult. She is here to learn of different treatment options. ROS: Constitutional: denies Nausea/Vominting/Fever. Eyes, Ears, Nose, and Throat: denies blurred vision, difficulty eating or tinnitis. Cardiovascular: denies TN, murmurs, HTN, CHF. GI: denies diarrhea/constipation. : denies incontinence/polyuria Dermatology: See HPI musculoskeletal: denies rheumatoid arthritis/gout. Respiratory: denies asthma/emphysema/pneumonia Psychiatric: denies anxiety/depression Neurological: denies memory loss or paralysis Endocrine: denies thyroid disorder or diabetes No past medical history on file. Social History Tobacco Use - Smoking status: Not on file Substance Use Topics - Alcohol use: Not on file - Drug use: Not on file No family history on file. MEDICATIONS: Current Outpatient Medications Medication Sig - Desogestrel-Ethinyl Estradiol (APRI) 0.15-0.03 mg per tablet Take by mouth q 24 HR. - Norgestimate-Ethinyl Estradiol (TKW-CW-AEARHG) 0.18/0.215/0.25 mg-25 mcg TAKE 1 TABLET BY MOUTH EVERY DAY - APRI 0.15-0.03 mg per tablet No current facility-administered medications for this visit. ALLERGIES: ALLERGIES No Known Allergies LOWER EXTREMITY EXAM: Patient A AND O X's 3, NAD. VASC: Palpable pedal pulses bilateral. Skin temperature warm to cool from proximal tibial tuberosity to distal digits. No pitting edema noted on bilateral lower extremity. Pedal hair growth noted bilaterally. DERM: No interdigital maceration or open lesions noted. Ingrowing nail border noted on the lateral aspect of both great toes. Tenderness on palpation over the nail fold. ORTHO: Dorsiflexion/plantar flexion of foot at ankle level within normal limits. Inversion/eversion of bilateral feet within normal range as well. 5/5 in both extrinsics and intrinsic muscle groups. NEURO: Able to discern between light and dull touch on both feet. ASSESSMENT: Ingrowing nail border, lateral aspect of bilateral great toes Bilateral toe pain TREATMENT/PLAN: -Discussed treatment options with patient. Patient wishes to schedule for partial nail avulsion with a chemical matricectomy on the lateral border of both great toes. Our planner scheduler will contact patient to finalize surgical date and time. [facility] History of Present illness Narrative Note Date & Type Note Facility History of Present illness Narrative Patient presents for postop incision check following section. She voices no complaints and is doing well. [facility] [place] Phone: Summary Purpose Family History No Family History Records FoundUnknown Family Member Name Dates Details Family history of osteoporos is: Grandparent(V17.81, Z82.62) Status:Active Family history of cerebrovas cular accident (CVA): Grandparent(V17.1, Z82.3) Status:Active Irregular heart beat: Grandp arent Status:Active Family history of atrial fib rillation: Grandparent(V17.49, Z82.49) Status:Active Family history of pulmonary valve stenosis: Brother(V17.49, Z82.49) Status:Active Unknown Family Member Name Dates Details Family history of osteoporos is: Grandparent(V17.81, Z82.62) Status:Active Family history of cerebrovas cular accident (CVA): Grandparent(V17.1, Z82.3) Status:Active Irregular heart beat: Grandp arent Status:Active Family history of atrial fib rillation: Grandparent(V17.49, Z82.49) Status:Active Family history of pulmonary valve stenosis: Brother(V17.49, Z82.49) Status:Active Unknown Family Member Name Dates Details Family history of osteoporos is: Grandparent(V17.81, Z82.62) Status:Active Family history of cerebrovas cular accident (CVA): Grandparent(V17.1, Z82.3) Status:Active Irregular heart beat: Grandp arent Status:Active Family history of atrial fib rillation: Grandparent(V17.49, Z82.49) Status:Active Family history of pulmonary valve stenosis: Brother(V17.49, Z82.49) Status:Active Unknown Family Member Name Dates Details Family history of osteoporos is: Grandparent(V17.81, Z82.62) Status:Active Family history of cerebrovas cular accident (CVA): Grandparent(V17.1, Z82.3) Status:Active Irregular heart beat: Grandp arent Status:Active Family history of atrial fib rillation: Grandparent(V17.49, Z82.49) Status:Active Family history of pulmonary valve stenosis: Brother(V17.49, Z82.49) Status:Active Unknown Family Member Name Dates Details Family history of osteoporos is: Grandparent(V17.81, Z82.62) Status:Active Family history of cerebrovas cular accident (CVA): Grandparent(V17.1, Z82.3) Status:Active Irregular heart beat: Grandp arent Status:Active Family history of atrial fib rillation: Grandparent(V17.49, Z82.49) Status:Active Family history of pulmonary valve stenosis: Brother(V17.49, Z82.49) Status:Active Unknown Family Member Name Dates Details Family history of osteoporos is: Grandparent(V17.81, Z82.62) Status:Active Family history of cerebrovas cular accident (CVA): Grandparent(V17.1, Z82.3) Status:Active Irregular heart beat: Grandp arent Status:Active Family history of atrial fib rillation: Grandparent(V17.49, Z82.49) Status:Active Family history of pulmonary valve stenosis: Brother(V17.49, Z82.49) Status:Active Unknown Family Member Name Dates Details Family history of osteoporos is: Grandparent(V17.81, Z82.62) Status:Active Family history of cerebrovas cular accident (CVA): Grandparent(V17.1, Z82.3) Status:Active Irregular heart beat: Grandp arent Status:Active Family history of atrial fib rillation: Grandparent(V17.49, Z82.49) Status:Active Family history of pulmonary valve stenosis: Brother(V17.49, Z82.49) Status:Active Unknown Family Member Name Dates Details Family history of osteoporos is: Grandparent(V17.81, Z82.62) Status:Active Family history of cerebrovas cular accident (CVA): Grandparent(V17.1, Z82.3) Status:Active Irregular heart beat: Grandp arent Status:Active Family history of atrial fib rillation: Grandparent(V17.49, Z82.49) Status:Active Family history of pulmonary valve stenosis: Brother(V17.49, Z82.49) Status:Active Unknown Family Member Name Dates Details Family history of osteoporos is: Grandparent(V17.81, Z82.62) Status:Active Family history of cerebrovas cular accident (CVA): Grandparent(V17.1, Z82.3) Status:Active Irregular heart beat: Grandp arent Status:Active Family history of atrial fib rillation: Grandparent(V17.49, Z82.49) Status:Active Family history of pulmonary valve stenosis: Brother(V17.49, Z82.49) Status:Active Unknown Family Member Name Dates Details Family history of osteoporos is: Grandparent(V17.81, Z82.62) Status:Active Family history of cerebrovas cular accident (CVA): Grandparent(V17.1, Z82.3) Status:Active Irregular heart beat: Grandp arent Status:Active Family history of atrial fib rillation: Grandparent(V17.49, Z82.49) Status:Active Family history of pulmonary valve stenosis: Brother(V17.49, Z82.49) Status:Active Unknown Family Member Name Dates Details Family history of osteoporos is: Grandparent(V17.81, Z82.62) Status:Active Family history of cerebrovas cular accident (CVA): Grandparent(V17.1, Z82.3) Status:Active Irregular heart beat: Grandp arent Status:Active Family history of atrial fib rillation: Grandparent(V17.49, Z82.49) Status:Active Family history of pulmonary valve stenosis: Brother(V17.49, Z82.49) Status:Active Unknown Family Member Name Dates Details Family history of osteoporos is: Grandparent(V17.81, Z82.62) Status:Active Family history of cerebrovas cular accident (CVA): Grandparent(V17.1, Z82.3) Status:Active Irregular heart beat: Grandp arent Status:Active Family history of atrial fib rillation: Grandparent(V17.49, Z82.49) Status:Active Family history of pulmonary valve stenosis: Brother(V17.49, Z82.49) Status:Active Unknown Family Member Name Dates Details Family history of osteoporos is: Grandparent(V17.81, Z82.62) Status:Active Family history of cerebrovas cular accident (CVA): Grandparent(V17.1, Z82.3) Status:Active Irregular heart beat: Grandp arent Status:Active Family history of atrial fib rillation: Grandparent(V17.49, Z82.49) Status:Active Family history of pulmonary valve stenosis: Brother(V17.49, Z82.49) Status:Active Unknown Family Member Name Dates Details Family history of osteoporos is: Grandparent(V17.81, Z82.62) Status:Active Family history of cerebrovas cular accident (CVA): Grandparent(V17.1, Z82.3) Status:Active Irregular heart beat: Grandp arent Status:Active Family history of atrial fib rillation: Grandparent(V17.49, Z82.49) Status:Active Family history of pulmonary valve stenosis: Brother(V17.49, Z82.49) Status:Active Unknown Family Member Name Dates Details Family history of osteoporos is: Grandparent(V17.81, Z82.62) Status:Active Family history of cerebrovas cular accident (CVA): Grandparent(V17.1, Z82.3) Status:Active Irregular heart beat: Grandp arent Status:Active Family history of atrial fib rillation: Grandparent(V17.49, Z82.49) Status:Active Family history of pulmonary valve stenosis: Brother(V17.49, Z82.49) Status:Active Unknown Family Member Name Dates Details Family history of osteoporos is: Grandparent(V17.81, Z82.62) Status:Active Family history of cerebrovas cular accident (CVA): Grandparent(V17.1, Z82.3) Status:Active Irregular heart beat: Grandp arent Status:Active Family history of atrial fib rillation: Grandparent(V17.49, Z82.49) Status:Active Family history of pulmonary valve stenosis: Brother(V17.49, Z82.49) Status:Active Unknown Family Member Name Dates Details Family history of osteoporos is: Grandparent(V17.81, Z82.62) Status:Active Family history of cerebrovas cular accident (CVA): Grandparent(V17.1, Z82.3) Status:Active Irregular heart beat: Grandp arent Status:Active Family history of atrial fib rillation: Grandparent(V17.49, Z82.49) Status:Active Family history of pulmonary valve stenosis: Brother(V17.49, Z82.49) Status:Active Unknown Family Member Name Dates Details Family history of osteoporos is: Grandparent(V17.81, Z82.62) Status:Active Family history of cerebrovas cular accident (CVA): Grandparent(V17.1, Z82.3) Status:Active Irregular heart beat: Grandp arent Status:Active Family history of atrial fib rillation: Grandparent(V17.49, Z82.49) Status:Active Family history of pulmonary valve stenosis: Brother(V17.49, Z82.49) Status:Active Unknown Family Member Name Dates Details Family history of osteoporos is: Grandparent(V17.81, Z82.62) Status:Active Family history of cerebrovas cular accident (CVA): Grandparent(V17.1, Z82.3) Status:Active Irregular heart beat: Grandp arent Status:Active Family history of atrial fib rillation: Grandparent(V17.49, Z82.49) Status:Active Family history of pulmonary valve stenosis: Brother(V17.49, Z82.49) Status:Active Unknown Family Member Name Dates Details Family history of osteoporos is: Grandparent(V17.81, Z82.62) Status:Active Family history of cerebrovas cular accident (CVA): Grandparent(V17.1, Z82.3) Status:Active Irregular heart beat: Grandp arent Status:Active Family history of atrial fib rillation: Grandparent(V17.49, Z82.49) Status:Active Family history of pulmonary valve stenosis: Brother(V17.49, Z82.49) Status:Active Unknown Family Member Name Dates Details Family history of osteoporos is: Grandparent(V17.81, Z82.62) Status:Active Family history of cerebrovas cular accident (CVA): Grandparent(V17.1, Z82.3) Status:Active Irregular heart beat: Grandp arent Status:Active Family history of atrial fib rillation: Grandparent(V17.49, Z82.49) Status:Active Family history of pulmonary valve stenosis: Brother(V17.49, Z82.49) Status:Active Unknown Family Member Name Dates Details Family history of osteoporos is: Grandparent(V17.81, Z82.62) Status:Active Family history of cerebrovas cular accident (CVA): Grandparent(V17.1, Z82.3) Status:Active Irregular heart beat: Grandp arent Status:Active Family history of atrial fib rillation: Grandparent(V17.49, Z82.49) Status:Active Family history of pulmonary valve stenosis: Brother(V17.49, Z82.49) Status:Active Unknown Family Member Name Dates Details Family history of osteoporos is: Grandparent(V17.81, Z82.62) Status:Active Family history of cerebrovas cular accident (CVA): Grandparent(V17.1, Z82.3) Status:Active Irregular heart beat: Grandp arent Status:Active Family history of atrial fib rillation: Grandparent(V17.49, Z82.49) Status:Active Family history of pulmonary valve stenosis: Brother(V17.49, Z82.49) Status:Active Advance Directives No Advanced Directives Records FoundNo Advanced Directives Records FoundNo Advanced Directives Records FoundNo Advanced Directives Records FoundNo Advanced Directives Records FoundNo Advanced Directives Records Found Chief Complaint * Pt is here today with the C/O rash on her right shoulder that is painful. This note was generated by using [employer] software. It may contain errors in wording, punctuate, or spelling. * She is here today with a 48-hour history of a painful rash that erupted on the right upper back region. It looks classic for shingles eruption and is occupying the dermatomal regions of T2-T5. She states that her pain is probably a 3 on a pain scale of 1-10. She is . We discussed prescribing Valtrex which appears to be safe during . We also discussed pain control and she knows she can take Tylenol. We did conduct a review of systems and she will call if things are not going according to plan. We talked about the vaccine and how it is approved for the age of 50 and over.. We did screen for depression and she answered no to both questions and she got this season's flu vaccinefrom her workplace we estimate about the middle of November. She will return as needed * Pt was having some nausea and dizziness on 03/01/21 at work and they sent her home she is unable to return to work until she is cleared by a doctor. This note was generated by using [employer] software. It may contain errors in wording, punctuate, or spelling. * She explains that on the while at work she was not drinking enough water and she was walking quite a bit from lab to lab. She estimates that she did 3000 steps and she states that I overdid things with my body . She states she is feeling perfectly fine now. We did conduct a review of systems. Her appears to be going well and she is having regular visits with her fur pointer. She states that she is scheduled to be off tomorrow and her return date would be on Sunday. I told her that we could have her return to work and we talked about making sure she paces herself and stays well-hydrated. Have also asked that she call us if she has any more the symptoms. We did conduct a review of systems. I also did a screening for depression which came back negative PT IS HERE TODAY FOR A 2 WEEK POST OP. HAD A C/S ON 08/03/2021. HAS NO CONCERNS. PT IS HERE TODAY FOR A 6 WEEK POST . HAS NO CONCERNS. BREAST FEEDING. DENIES ANY DEPRESSION. NOT INTERESTED IN B/C. HAS NOT BEEN SEXUALLY ACTIVE. HAS NOT STARTED HER PERIOD. Additional Source Comments INFORMATION SOURCE (unrecogn ized section and content) DATE CREATED AUTHOR AUTHOR'S ORGANIZ ATION 03/09/2021 [facility] DATE CREATED AUTHOR AUTHOR'S ORGANIZ ATION 08/06/2021 [facility] DATE CREATED AUTHOR AUTHOR'S ORGANIZ ATION 09/12/2021 [employer] DATE CREATED AUTHOR AUTHOR'S ORGANIZ ATION 09/15/2021 [facility] DATE CREATED AUTHOR AUTHOR'S ORGANIZ ATION 12/23/2022 [facility] FOR RECORDS PERTAINING TO PATIENTS WHO ARE OR HAVE BEEN ENROLLED IN A CHEMICAL DEPENDENCY/SUBSTANCEABUSE PROGRAM, SOME INFORMATION MAY BE OMITTED. This clinical summary was aggregated from multiple sources. Caution should be exercised in using it in the provision of clinical care. This summary normalizes information from multiple sources, and as a consequence, information in this document may materially change the coding, format and clinical context of patient data. In addition, data may be omitted in some cases. CLINICAL DECISIONS SHOULD BE BASED ON THE PRIMARY CLINICAL RECORDS. [facility]. provides no warranty or guarantee of the accuracy or completeness of information in this document.
[2023-03-05 07:17] LABS: Glucose GTT-Gestation. Fasting 81 mg/dL (<105)
[2023-03-05 08:29] LABS: Glucose GTT-Gestational 1 Hr 166 mg/dL (<190)
[2023-03-05 09:47] LABS: Glucose GTT-Gestational 2 Hr 135 mg/dL (<165)
[2023-03-05 11:17] LABS: Glucose GTT-Gestational 3 Hr 49 L (<145)
== END | disposition home or self-care (01) ==
LOC: LAB 06:40
PROVIDERS: PCP Internal Medicine; Referring Provider Registered Nurse; Visit Provider Registered Nurse
DX: Z13.1 Encounter for screening for diabetes mellitus (principal)
CPT/HCPCS: 36415; 82951; 82952

== ENCOUNTER → 2023-04-23 | Outpatient (CLI) | payer OTHER, SELFPAY ==
--- OUTSIDE RECORDS SUMMARY | 2023-04-23 22:36 | XMS RPT_ITS | CCD ---
Author Name Unknown Address [address] [facility] [address] [place] [address] Organization [facility] Care Team Providers Care Firer Marine Name Role Phone Clare Yu Unavailable Unavailable [...] Quantity: 84 Refills: 2 Ordered: 06-Jul-2020 Marin Arriola DO Start : 31-Jul-2019 Active doxylamine succinate 25 mg oral tablet (19 sources) Start: 12-24-2020 take 1 tablet by mouth at bedtime Unisom SleepTabs 25 MG Oral Tablet TAKE 1 TABLET AT BEDTIME. Quantity: 30 Refills: 4 Ordered: 24-Dec-2020 Marin Arriola DO Start : 24-Dec-2020 Active loratadine 10 [...] Quantity: 60 Refills: 6 Ordered: 24-Dec-2020 Marin Arriola DO Start : 24-Dec-2020 Active Problems Active [...] height 162.56 cm Clare Yu Work Phone: [address] Work Phone: 09-12-2021 10:03-0400 Body mass index (BMI) [Ratio] 25.49 kg/m2 Clare S [place] Work Phone: [place] [address] [place] Work Phone: 09-12-2021 10:03-0400 Body surface area Derived from formula 1.72 m2 Clare S [place] Work Phone: [place] [address] [place] Work Phone: 09-12-2021 10:03-0400 Body weight 67.36 kg Clare S [place] Work Phone: [place] [address] [place] Work Phone: 09-12-2021 10:03-0400 Diastolic blood pressure 80 mm[Hg] Clare S [place] Work Phone: [place] [address] [place] Work Phone: 09-12-2021 10:03-0400 Systolic blood pressure 110 mm[Hg] Clare S [place] Work Phone: [place] [address] [place] Work Phone: 08-17-2021 11:15-0400 Body height 162.56 cm Clare S [place] Work Phone: [place] [address] [place] Work Phone: 08-17-2021 11:15-0400 Body mass index (BMI) [Ratio] 25.92 kg/m2 Clare S [place] Work Phone: [place] [address] [place] Work Phone: 08-17-2021 11:15-0400 Body surface area Derived from formula 1.74 m2 Clare S [place] Work Phone: [place] [address] [place] Work Phone: 08-17-2021 11:15-0400 Body weight 68.5 kg Clare S [place] Work Phone: [place] [address] [place] Work Phone: 08-17-2021 11:15-0400 Diastolic blood pressure 80 mm[Hg] Clare S [place] Work Phone: [place] [address] [place] Work Phone: 08-17-2021 11:15-0400 Systolic blood pressure 118 mm[Hg] Clare S [place] Work Phone: [place] [address] [place] Work Phone: 08-01-2021 10:32-0400 Body height 162.56 cm Clare S [place] Work Phone: [place] [address] [place] Work Phone: 08-01-2021 10:32-0400 Body mass index (BMI) [Ratio] 29.44 kg/m2 Clare S [place] Work Phone: [place] [address] [place] Work Phone: 08-01-2021 10:32-0400 Body surface area Derived from formula 1.83 m2 Clare S [place] Work Phone: [place] [address] [place] Work Phone: 08-01-2021 10:32-0400 Body weight 77.8 kg Clare S [place] Work Phone: [place] [address] [place] Work Phone: 08-01-2021 10:32-0400 Diastolic blood pressure 76 mm[Hg] Clare S [place] Work Phone: [place] [address] [place] Work Phone: 08-01-2021 10:32-0400 Systolic blood pressure 120 mm[Hg] Clare S [place] Work Phone: [place] [address] [place] Work Phone: 07-29-2021 10:11-0400 Body height 162.56 cm Clare S [place] Work Phone: [place] [address] [place] Work Phone: 07-29-2021 10:11-0400 Body mass index (BMI) [Ratio] 29.06 kg/m2 Clare S [place] Work Phone: [place] [address] [place] Work Phone: 07-29-2021 10:11-0400 Body surface area Derived from formula 1.82 m2 Clare S [place] Work Phone: [place] [address] [place] Work Phone: 07-29-2021 10:11-0400 Body weight 76.8 kg Clare S [place] Work Phone: [place] [address] [place] Work Phone: 07-29-2021 10:11-0400 Diastolic blood pressure 80 mm[Hg] Clare S [place] Work Phone: [place] [address] [place] Work Phone: 07-29-2021 10:11-0400 Systolic blood pressure 120 mm[Hg] Clare S [place] Work Phone: [place] [address] [place] Work Phone: 07-22-2021 10:05-0400 Body height 162.56 cm Clare S [place] Work Phone: [place] [address] [place] Work Phone: 07-22-2021 10:05-0400 Body mass index (BMI) [Ratio] 28.65 kg/m2 Clare S [place] Work Phone: [place] [address] [place] Work Phone: 07-22-2021 10:05-0400 Body surface area Derived from formula 1.81 m2 Clare S [place] Work Phone: [place] [address] [place] Work Phone: 07-22-2021 10:05-0400 Body weight 75.7 kg Clare S [place] Work Phone: [place] [address] [place] Work Phone: 07-22-2021 10:05-0400 Diastolic blood pressure 82 mm[Hg] Clare S [place] Work Phone: [place] [address] [place] Work Phone: 07-22-2021 10:05-0400 Systolic blood pressure 126 mm[Hg] Clare S [place] Work Phone: [facility] Work Phone: 07-15-2021 09:58-0400 Body height 162.56 cm Clare S [place] Work Phone: [facility] [place] [employer] Work Phone: 07-15-2021 09:58-0400 Body mass index (BMI) [Ratio] 28.46 kg/m2 Clare S [place] Work Phone: [facility] [place] [facility] [place] Work Phone: 07-15-2021 09:58-0400 Body surface area Derived from formula 1.81 m2 Clare S [place] Work Phone: [facility] Global[place] [address] [place] Work Phone: 07-15-2021 09:58-0400 Body weight 75.2 kg Clare S [place] Work Phone: [facility] [place] [facility] [place] Work Phone: 07-15-2021 09:58-0400 Diastolic blood pressure 80 mm[Hg] Clare S [place] Work Phone: [facility] [place] [facility] [place] Work Phone: 07-15-2021 09:58-0400 Systolic blood pressure 120 mm[Hg] Lcare S [place] Work Phone: [facility] Global[facility] [place] [address] [place] Work Phone: 07-08-2021 08:45-0400 Body height 162.56 cm Clare S [place] Work Phone: [employer] Work Phone: 07-08-2021 08:45-0400 Body mass index (BMI) [Ratio] 28.46 kg/m2 Clare S [place] Work Phone: [employer] [facility] Work Phone: 07-08-2021 08:45-0400 Body surface area Derived from formula 1.81 m2 Clare S [place] Work Phone: [employer] Work Phone: 07-08-2021 08:45-0400 Body weight 75.2 kg Clare S [place] Work Phone: [facility] [place] [facility] [place] Work Phone: 07-08-2021 08:45-0400 Diastolic blood pressure 80 mm[Hg] Clare S [place] Work Phone: [employer] [facility] Work Phone: 07-08-2021 08:45-0400 Systolic blood pressure 108 mm[Hg] Clare S [place] Work Phone: [facility] Work Phone: 07-01-2021 10:03-0400 Body height 162.56 cm Clare S [place] Work Phone: [employer] Work Phone: 07-01-2021 10:03-0400 Body mass index (BMI) [Ratio] 28.34 kg/m2 Clare S [place] Work Phone: [employer] Work Phone: 07-01-2021 10:03-0400 Body surface area Derived from formula 1.8 m2 Clare S [place] Work Phone: [place] [address] [place] Work Phone: 07-01-2021 10:03-0400 Body weight 74.9 kg Clare S [place] Work Phone: [place] [address] [place] Work Phone: 07-01-2021 10:03-0400 Diastolic blood pressure 64 mm[Hg] Clare S [place] Work Phone: [place] [address] [place] Work Phone: 07-01-2021 10:03-0400 Systolic blood pressure 118 mm[Hg] Clare S [place] Work Phone: [place] [address] [place] Work Phone: 06-17-2021 10:18-0400 Body height 162.56 cm Clare S [place] Work Phone: [place] [address] [place] Work Phone: 06-17-2021 10:18-0400 Body mass index (BMI) [Ratio] 27.66 kg/m2 Clare S [place] Work Phone: [place] [address] [place] Work Phone: 06-17-2021 10:18-0400 Body surface area Derived from formula 1.78 m2 Clare S [place] Work Phone: [address] Work Phone: 06-17-2021 10:18-0400 Body weight 73.1 kg Clare S [place] Work Phone: [place] [address] [place] Work Phone: 06-17-2021 10:18-0400 Diastolic blood pressure 64 mm[Hg] Clare S [place] Work Phone: [place] [address] [place] Work Phone: 06-17-2021 10:18-0400 Systolic blood pressure 118 mm[Hg] Clare S [place] Work Phone: [place] [address] [place] Work Phone: 06-03-2021 11:06-0400 Body height 162.56 cm Clare S [place] Work Phone: [place] [address] [place] Work Phone: 06-03-2021 11:06-0400 Body mass index (BMI) [Ratio] 27.62 kg/m2 Clare S [place] Work Phone: [place] [address] [place] Work Phone: 06-03-2021 11:06-0400 Body surface area Derived from formula 1.78 m2 Clare S [place] Work Phone: [place] [address] [place] Work Phone: 06-03-2021 11:06-0400 Body weight 73 kg Clare S [place] Work Phone: [place] [address] [place] Work Phone: 06-03-2021 11:06-0400 Diastolic blood pressure 70 mm[Hg] Clare S [place] Work Phone: [place] [address] [place] Work Phone: 06-03-2021 11:06-0400 Systolic blood pressure 112 mm[Hg] Clare S [place] Work Phone: [place] [address] [place] Work Phone: 05-23-2021 11:02-0400 Body height 162.56 cm Clare S [place] Work Phone: [place] [address] [place] Work Phone: 05-23-2021 11:02-0400 Body mass index (BMI) [Ratio] 27.59 kg/m2 Clare S [place] Work Phone: [place] [address] [place] Work Phone: 05-23-2021 11:02-0400 Body surface area Derived from formula 1.78 m2 Clare S [place] Work Phone: [place] [address] [place] Work Phone: 05-23-2021 11:02-0400 Body weight 72.9 kg Clare S [place] Work Phone: [place] [address] [place] Work Phone: 05-23-2021 11:02-0400 Diastolic blood pressure 78 mm[Hg] Clare S [place] Work Phone: [place] [address] [place] Work Phone: 05-23-2021 11:02-0400 Systolic blood pressure 112 mm[Hg] Clare S [place] Work Phone: [place] [address] [place] Work Phone: 05-13-2021 13:52-0400 Body height 162.56 cm Clare S [place] Work Phone: [place] [address] [place] Work Phone: 05-13-2021 13:52-0400 Body mass index (BMI) [Ratio] 27.49 kg/m2 Clare S [place] Work Phone: [place] [address] [place] Work Phone: 05-13-2021 13:52-0400 Body surface area Derived from formula 1.78 m2 Clare S [place] Work Phone: [place] [address] [place] Work Phone: 05-13-2021 13:52-0400 Body weight 72.63 kg Clare S [place] Work Phone: [place] [address] [place] Work Phone: 05-13-2021 13:52-0400 Diastolic blood pressure 78 mm[Hg] Clare S [place] Work Phone: [place] [address] [place] Work Phone: 05-13-2021 13:52-0400 Systolic blood pressure 110 mm[Hg] Clare S [place] Work Phone: [place] [address] [place] Work Phone: 04-15-2021 14:56-0500 Body height 162.56 cm Clare S [place] Work Phone: [place] [address] [place] Work Phone: 04-15-2021 14:56-0500 Body mass index (BMI) [Ratio] 26.3 kg/m2 Clare S [place] Work Phone: [place] [address] [place] Work Phone: 04-15-2021 14:56-0500 Body surface area Derived from formula 1.75 m2 Clare S [place] Work Phone: [place] [address] [place] Work Phone: 04-15-2021 14:56-0500 Body weight 69.5 kg Clare S [place] Work Phone: [place] [address] [place] Work Phone: 04-15-2021 14:56-0500 Diastolic blood pressure 70 mm[Hg] Clare S [place] Work Phone: [place] [address] [place] Work Phone: 04-15-2021 14:56-0500 Systolic blood pressure 112 mm[Hg] Clare S [place] Work Phone: [place] [address] [place] Work Phone: 03-18-2021 14:56-0500 Body height 162.56 cm Clare S [place] Work Phone: [place] [address] [place] Work Phone: 03-18-2021 14:56-0500 Body mass index (BMI) [Ratio] 25.28 kg/m2 Clare S [place] Work Phone: [place] [address] [place] Work Phone: 03-18-2021 14:56-0500 Body surface area Derived from formula 1.72 m2 Clare Granados [place] Work Phone: [address] Work Phone: 03-18-2021 14:56-0500 Body temperature 97.1 [degF] Clare Granados [place] Work Phone: [address] Work Phone: 03-18-2021 14:56-0500 Body weight 66.8 kg Clare Granados [place] Work Phone: [address] Work Phone: 03-18-2021 14:56-0500 Diastolic blood pressure 78 mm[Hg] Clare Granados [employer] Phone: [address] Work Phone: 03-18-2021 14:56-0500 Systolic blood pressure 118 mm[Hg] Clare Granados [employer] Work Phone: [address] Work Phone: 02-18-2021 14:58-0500 Body height 162.56 cm Clare Granados [employer] Phone: [employer] [facility] Work Phone: 02-18-2021 14:58-0500 Body mass index (BMI) [Ratio] 24.48 kg/m2 Clare Granados [employer] Work Phone: [employer] [facility] [place] Work Phone: 02-18-2021 14:58-0500 Body surface area Derived from formula 1.69 m2 Clare Granados [employer] Phone: [employer] [facility] Work Phone: 02-18-2021 14:58-0500 Body temperature 95.3 [degF] Clare S [employer] Phone: [facility] Work Phone: 02-18-2021 14:58-0500 Body weight 64.7 kg Clare Granados [place] Work Phone: [facility] [place] Work Phone: 02-18-2021 14:58-0500 Diastolic blood pressure 60 mm[Hg] Clare S [place] Work Phone: [facility] Work Phone: 02-18-2021 14:58-0500 Systolic blood pressure 110 mm[Hg] Clare S [place] Work Phone: [facility] Work Phone: 02-14-2021 15:17-0500 Body height 162.56 cm Clare S [place] Work Phone: [facility] Work Phone: 02-14-2021 15:17-0500 Body mass index (BMI) [Ratio] 23.75 kg/m2 Clare Granados [place] Work Phone: [facility] Work Phone: 02-14-2021 15:17-0500 Body surface area Derived from formula 1.67 m2 Clare S [place] Work Phone: [facility] Work Phone: 02-14-2021 15:17-0500 Body temperature 97.1 [degF] Clare S [place] Work Phone: [facility] Work Phone: 02-14-2021 15:17-0500 Body weight 62.77 kg Clare S [place] Work Phone: [facility] Work Phone: 02-14-2021 15:17-0500 Diastolic blood pressure 76 mm[Hg] Clare S [place] Work Phone: [facility] Work Phone: 02-14-2021 15:17-0500 Heart rate 125 /min Clare Yu [employer] Phone: [facility] Work Phone: 02-14-2021 15:17-0500 SaO2% (BldA) [Mass fraction] 97 % Clare Granados [employer] Phone: [facility] Work Phone: 02-14-2021 15:17-0500 Systolic blood pressure 124 mm[Hg] Clare Granados [employer] Phone: [facility] Work Phone: 01-21-2021 15:08-0500 Body height 162.56 cm Clare Granados [employer] Phone: [address] Work Phone: 01-21-2021 15:08-0500 Body mass index (BMI) [Ratio] 23.84 kg/m2 Clare Granados [employer] Phone: [address] Work Phone: 01-21-2021 15:08-0500 Body surface area Derived from formula 1.68 m2 Clare Granados [employer] Phone: [address] Work Phone: 01-21-2021 15:08-0500 Body temperature 97.3 [degF] Clare Granados [employer] Phone: [address] Work Phone: 01-21-2021 15:08-0500 Body weight 63 kg Clare Yu [employer] Phone: [address] Work Phone: 01-21-2021 15:08-0500 Diastolic blood pressure 80 mm[Hg] Clare Granados [place] Work Phone: [employer] Work Phone: 01-21-2021 15:08-0500 Systolic blood pressure 120 mm[Hg] Clare Granados [place] Work Phone: [employer] Work Phone: 12-24-2020 09:37-0500 Body height 162.56 cm Clare Granados [employer] Work Phone: [employer] Work Phone: 12-24-2020 09:37-0500 Body mass index (BMI) [Ratio] 23.35 kg/m2 Clare Granados [employer] Work Phone: [employer] Work Phone: 12-24-2020 09:37-0500 Body surface area Derived from formula 1.66 m2 Clare Granados [employer] Work Phone: [employer] Work Phone: 12-24-2020 09:37-0500 Body temperature 97.5 [degF] Clare Granados [employer] Phone: [employer] Work Phone: 12-24-2020 09:37-0500 Body weight 61.7 kg Clare Granados [employer] Work Phone: [employer] Work Phone: 12-24-2020 09:37-0500 Diastolic blood pressure 80 mm[Hg] Clare Roberta [employer] Work Phone: [employer] Work Phone: 12-24-2020 09:37-0500 Systolic blood pressure 120 mm[Hg] Clare Granados [employer] Work Phone: [employer] Work Phone: Encounters Encounter Date Encounter Type Care Provider Facility Start: 12-21-2022 End: 12-21-2022 ambulatory INGRID Corrales ANG[facility] Start: 09-14-2021 Chart Update Clare Najera al Work Phone: [facility] [place] [address] [place] Work Phone: Start: 09-12-2021 Patient encounter procedure Clare S [place] Work Phone: [facility] [place] [address] [place] Work Phone: Start: 08-17-2021 Postop follow up vis it related to original px Clare S [place] Work Phone: [facility] [place] [address] [place] Work Phone: Start: 08-01-2021 Office outpatient vi sit 10 minutes Clare S [place] Work Phone: [facility] [facility] [place] Work Phone: Start: 07-29-2021 Office outpatient vi sit 15 minutes Clare S [place] Work Phone: [facility] [place] [address] [place] Work Phone: Start: 07-22-2021 Office outpatient vi sit 10 minutes Clare S [place] Work Phone: [facility] [place] [address] [place] Work Phone: Start: 07-18-2021 Chart Update Clare Najera al Work Phone: [facility] [address] [place] Work Phone: Start: 07-15-2021 Office outpatient vi sit 10 minutes Clare S [place] Work Phone: [facility] [place] [address] [place] Work Phone: Start: 07-08-2021 Office outpatient vi sit 10 minutes Clare S [place] Work Phone: [facility] [address] [place] Work Phone: Start: 07-01-2021 Chart Update Clare S Reinaldo al Work Phone: [address] Work Phone: Start: 06-03-2021 Office outpatient vi sit 10 minutes Clare S [place] Work Phone: [address] Work Phone: Start: 05-24-2021 Nutrition therapy Clare S R oyal Work Phone: [facility] Work Phone: Start: 05-23-2021 Office outpatient vi sit 15 minutes Clare S [place] Work Phone: [address] Work Phone: Start: 05-13-2021 Chart Update Clare S Reinaldo al Work Phone: [address] Work Phone: Start: 03-21-2021 Chart Update Clare S Reinaldo al Work Phone: [address] Work Phone: Start: 03-18-2021 Office outpatient vi sit 10 minutes Clare S [place] Work Phone: [address] Work Phone: Start: 03-03-2021 Office outpatient vi sit 15 minutes Clare S [place] Work Phone: [facility] Work Phone: Start: 02-14-2021 Office outpatient vi sit 15 minutes Clare S [place] Work Phone: [facility] Work Phone: Start: 01-24-2021 AUDIT Clare S Reinaldo al Work Phone: [address] Work Phone: Start: 01-21-2021 Office outpatient vi sit 15 minutes Clare S [place] Work Phone: [facility] [employer] Work Phone: Start: 01-15-2021 Rx Renewal Clare Valdiviay al Work Phone: [employer] Work Phone: Start: 12-24-2020 Office outpatient vi sit 15 minutes Clare S [place] Work Phone: [employer] Work Phone: Start: 07-06-2020 Rx Renewal Clare Valdiviay al Work Phone: [employer] [place] [employer] Work Phone: Menarche Clare Granados [place] Work Phone: [facility] [employer] Phone: Procedures Date Procedure Procedure Detail Performing Clinician Start: 08-02-2021 Antibody screen Plan of Treatment Date Care Activity Detail Author Start: 09-13-2022 Patient encounter procedure ANNUAL, Provider: Christiane Conte, Status: Pen, Time: 10:30 AM [employer] [facility] [employer] Phone: Start: 09-12-2021 PPV, Provider: Marin Arriola, Status: Pen, Time: 10:00 AM PPV, Provider: Marin Arriola, Status: Pen, Time: 10:00 AM [employer] Phone: Start: 08-05-2021 EPVOB, Provider: Marin Arriola, Status: Pen, Time: 10:00 AM EPVOB, Provider: Marin Arriola, Status: Pen, Time: 10:00 AM [employer] Phone: Start: 08-01-2021 EPVOB, Provider: Marin Arriola, Status: Pen, Time: 10:30 AM EPVOB, Provider: Marin Arriola, Status: Pen, Time: 10:30 AM [employer] Phone: Start: 07-29-2021 EPVOB, Provider: Christiane Conte, Status: Pen, Time: 10:15 AM EPVOB, Provider: Christiane Conte, Status: Pen, Time: 10:15 AM [employer] Work Phone: Start: 07-22-2021 EPVOB, Provider: Marin Arriola, Status: Pen, Time: 10:00 AM EPVOB, Provider: Marin Arriola, Status: Pen, Time: 10:00 AM [employer] Work Phone: Start: 07-15-2021 EPVOB, Provider: Marin Arriola, Status: Pen, Time: 10:00 AM EPVOB, Provider: Marin Arriola, Status: Pen, Time: 10:00 AM [employer] Work Phone: Start: 07-08-2021 EPVOB, Provider: Marin Arriola, Status: Pen, Time: 8:45 AM EPVOB, Provider: Marin Arriola, Status: Pen, Time: 8:45 AM [employer] Work Phone: Start: 07-01-2021 EPVOB, Provider: Christiane Conte, Status: Pen, Time: 10:15 AM EPVOB, Provider: Christiane Conte, Status: Pen, Time: 10:15 AM [employer] Work Phone: Start: 06-24-2021 EPVOB, Provider: Marin Arriola, Status: Pen, Time: 9:00 AM EPVOB, Provider: Marin Arriola, Status: Pen, Time: 9:00 AM [employer] Work Phone: Start: 06-17-2021 EPVOB, Provider: Trae Mohan, Status: Pen, Time: 10:30 AM EPVOB, Provider: Trae Mohan, Status: Pen, Time: 10:30 AM [employer] Work Phone: Start: 06-10-2021 EPVOB, Provider: Trae Mohan, Status: Pen, Time: 8:45 AM EPVOB, Provider: Trae Mohan, Status: Pen, Time: 8:45 AM [place] [address] [employer] Phone: Start: 06-03-2021 EPVOB, Provider: Marin Arriola, Status: Pen, Time: 11:00 AM EPVOB, Provider: Marin Arriola, Status: Pen, Time: 11:00 AM [address] Phone: Start: 05-27-2021 EPVOB, Provider: Christiane Conte, Status: Pen, Time: 8:30 AM EPVOB, Provider: Christiane Conte, Status: Pen, Time: 8:30 AM [address] Phone: Start: 04-15-2021 EPVOB, Provider: Marin Arriola, Status: Pen, Time: 3:00 PM EPVOB, Provider: Marin Arriola, Status: Pen, Time: 3:00 PM [address] Work Phone: Start: 03-18-2021 EPVOB, Provider: Marin Arriola, Status: Pen, Time: 2:30 PM EPVOB, Provider: Marin Arriola, Status: Pen, Time: 2:30 PM [facility] Work Phone: Start: 03-18-2021 Patient encounter procedure ANNUAL, Provider: Marin Arriola, Status: Pen, Time: 8:[address] [employer] Phone: Start: 02-18-2021 EPVOB, Provider: Marin Arriola, Status: Pen, Time: 2:45 PM EPVOB, Provider: Marin Arriola, Status: Pen, Time: 2:45 PM [address] Work Phone: Start: 01-21-2021 EPVOB, Provider: Marin Arriola, Status: Pen, Time: 2:45 PM EPVOB, Provider: Marin Arriola, Status: Bart, Time: 2:45 PM [place] [address] [place] Work Phone: Immunizations Immunization Date Immunization Notes Care Provider Ray peters 11-25-2020 influenza, seasonal, injectable Clare Granados [place] Work Phone: [facility] Work Phone: Payers Date Payer Category Payer Unknown [id number] Private Health Insurance [id number] Unknown Social History Date Type Detail Facility Non-smoker Non-smoker [place] [id number] [employer] Work Phone: History of Present illness Narrative [...] control. Patient has no other acute concerns [place] [address] [employer] Work Phone: Discharge summary note 08-05-2021 Note Date & Type Note Facility 08-05-2021 Note Send Summary: Note Recipients: none Discharge: Summary: Admission Date: .02-Aug-2021 05:48:00 Discharge Date: 05-Aug-2021 Attending Physician at Discharge: Marin Arriola Admission Reason: Term Final Discharge Diagnoses: Status post primary low transverse section Procedures: Primary low transverse section Condition at Discharge: Satisfactory Disposition at Discharge: .Home Vital Signs: T PRBPMAPSpO2 [id number]% Date/Time08/05 3:477/ 3:47/ 3:47/ 3:477/ 3:47/ 3:47 Range(36.5C - 37.1C ) (67 - 109 ) (14 - 18 ) (112 - 138 )/ (57 - 81 ) (82 - 104 ) (90% - 100% ) Highest temp of 37.1 C was recorded at 7 0:17 Date: Weight/Scale Type:Height: 02-Aug-2021 04:2178.2 kg / [id number] cm Physical Exam: Lungs: Clear bilaterally Heart: Regular rate and rhythm Abdomen: Soft and nontender Hospital Course: Patient underwent a primary section for viable male infant on August 03, 2021. Patient is breast-feeding and was discharged on postop day 2. Immunizations: Immunizations: 01-Jul-2021 Tdap: Immunizations, 01-Jul-2021 Discharge Information: and Continuing Care: Lab Results - Pending: None Radiology Results - Pending: None [place] Suicide Risk: negative Discharge Instructions: Activity: Return to normal activity as tolerated Nutrition/Diet: Regular Follow Up Appointments: Follow-Up - OB Provider: Physician/Dept/Service: OB Provider Dr. Arriola Call to Schedule in: 2 weeks, post [...] Last Updated: 05-Aug-2021 08:02 by Trae Mohan) [facility] Clinical Note 08-03-2021 Note Date & Type [...] p.o. Awaiting bowel function Electronic Signatures: Marin Arriola) (Signed 03-Aug-2021 12:51) Authored: Clinical Event Note Last Updated: 03-Aug-2021 12:51 by Marin Arriola) [facility] Clinical Note 08-03-2021 Note Date & Type [...] same as pre-op dx Delivery Provider: Marin Arriola Track Man: Christiane Conte Dictation: not applicable - note [...] instrument count was correct X2. Pt and infant transferred to recovery in stable condition. Debrief [...] - IT Use Only2 Electronic Signatures: Marin Arriola) (Signed 03-Aug-2021 02:16) Authored: Provider Information, Hemorrhage Risk, Note Completion Last Updated: 03-Aug-2021 02:16 by Marin Arriola (DO) References: 1. 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 Objective: Objective Information: T PRBPMAPSpO2 [id number]% Date/Time08/02 6: 8: 6: 8: 8: 6:14 [...] lesions NST Interpretation - Baby A: Baseline SFR458 Variabilitymoderate (amplitude range 6 to 25 bpm) [...] 08:26) Authored: HPI/OB History, Labs, Antepartum/PP, Past Medical/Surgical/YOUTH CAREER SPECIALIST History, Social History, Allergies, Medications Prior to Admission, Objective, Assessment and Plan, Note Completion Last Updated: 02-Aug-2021 08:26 by Christiane Conte) References: 1. Data Referenced From Patient Profile - OB v3 02-Aug-2021 04:21 [facility] Progress note 08-13-2020 Note Date & Type Note Facility 08-13-2020 Note HNO ID: [id number] Author: Wilian Pérez V, DPM Service: ? [...] vision, difficulty eating or tinnitis. Cardiovascular: denies VT, murmurs, HTN, CHF. GI: denies diarrhea/constipation. : [...] -She is doing well. Follow-up as needed. [facility] Progress note 07-16-2020 Note Date & Type Note Facility 07-16-2020 Note HNO ID: [id number] Author: Wilian Pérez V, DPM Service: ? [...] vision, difficulty eating or tinnitis. Cardiovascular: denies VT, murmurs, HTN, CHF. GI: denies diarrhea/constipation. : [...] mouth q 24 HR. - Norgestimate-Ethinyl Estradiol (BHO-QB-BXBHNN) 0.18/0.215/0.25 mg-25 mcg TAKE 1 TABLET BY [...] lateral border of both great toes. Our rn medical surgical will contact patient to finalize surgical date and time. [facility] History of Present illness Narrative Note Date & Type Note Facility History of Present illness Narrative Patient presents for postop incision check following section. She voices no complaints and is doing well. [employer] [place] [employer]: Summary Purpose Family History No Family [...] painful. This note was generated by using [employer] software. It may contain errors in wording, [...] doctor. This note was generated by using [employer] software. 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 She states that she is scheduled to [...] DATE CREATED AUTHOR AUTHOR'S ORGANIZ ATION 03/09/2021 [facility] DATE CREATED AUTHOR AUTHOR'S ORGANIZ ATION 08/06/2021 [facility] DATE CREATED AUTHOR AUTHOR'S ORGANIZ ATION 09/12/2021 [employer] DATE CREATED AUTHOR AUTHOR'S ORGANIZ ATION 09/15/2021 [facility] DATE CREATED AUTHOR AUTHOR'S ORGANIZ ATION 12/23/2022 [facility] FOR RECORDS PERTAINING TO PATIENTS WHO [...] BE BASED ON THE PRIMARY CLINICAL RECORDS. [facility] [employer] [facility]. provides no warranty or guarantee of the accuracy or completeness of information in this document.
== END | disposition home or self-care (01) ==
PROVIDERS: PCP Internal Medicine; Visit Provider Registered Nurse
DX: Z34.90 Encounter for supervision of normal pregnancy, unspecified, unspecified trimester (principal)
CPT/HCPCS: 87081

== ENCOUNTER 2023-05-16 21:45 | Inpatient (IN) | payer OTHER, SELFPAY ==
[2023-05-16] VITALS (10 sets, daily range): BP systolic 137–164; BP diastolic 71–101; PULSE 84–116; RESP 16–18; TEMP 37.1; O2SAT 96–99; BMI 28.1
[2023-05-16 21:20] LABS: Protein, Urine (Random) 8.9 mg/dL (<11.9); Protein:Creat Ratio 464 mg/g CRE (0-200)
[2023-05-16 21:37] LABS: Hematocrit 33.3 % (37-47); Hemoglobin 10.8 g/dL (12.0-15.0); Mean Corp Hgb Conc 32.4 g/dL (32-36); Mean Corpuscular Hgb 28.2 pg (27.0-32.0); Mean Corpuscular Volume 86.9 fL (81-99); Mean Platelet Vol. 10.8 fl (6.2-12.0); Platelet Count 226 K/mm3 (150-450); RBC Distribution Width CV 14.1 % (11.6-14.6); RBC Distribution Width SD 44.2 fl (35.1-43.9); Red Blood Count 3.83 M/mm3 (4.2-5.4)
--- NOTE | 2023-05-16 22:00 | HP.PCM.OB_ITS ---
HPI - General General Date of Admission: 05/16/23 HPI Narrative DESIREE BAY, is a 27 y/o @ 39 weeks 4 days who presents to L&D with contractions that seemed to space out but was noted to have elevated blood pressures and proteinuria. she denies headaches, visual changes, ruq pain, or shortness of breath. She was given the diagnosis of mild pre-eclampsia. She has a history of prior section. Pt states that she was induced and stalled out at 6 cm dilated but thinks she was not given enough time to progress. She is very tearful stating that she does not want another section and wishes to TOLAC. Per nurse exam, her cervix is 2.5 cm dilated. Maternal Data Information JADA Calculator Estimated Delivery Date Method Current WG Current Estimate 05/19/23 Ultrasound #1 39w 4d Other Estimates 05/13/23 LMP (Certain) 40w 3d PFSH PFSH Medical History Hx of abnormal cervical Papanicolaou smear Home Medications docosahexaenoic acid 200 mg capsule ( DHA) mg PO 04/06/22 [History Last Taken Unknown] Allergy/AdvReac Type Severity Reaction Status Date / Time No Known Allergies Allergy Verified 05/16/23 20:36 Family History Other Atrial fibrillation CVA (cerebral vascular accident) Irregular heart beat Osteoporosis Pulmonary valve stenosis Surgical History History of delivery Social History adopted: No household members: family number of children: 1 current occupational status: employed current occupation: [employer] current occupational exposures/hazards: No pets and animals: Yes pets and animals: dog(s) history of recent travel: No sexually active: Yes Smoking Status: Never smoker alcohol intake: never substance use type: does not use caffeine: Yes what type of physical activity do you participate in: walking frequency: daily seatbelt use: always do you feel safe at home: Yes additional social history: -Riley History 2 Elective abortions Hx Para 1 Spontaneous abortions Hx # Term Pregnancies Ectopic pregnancies Hx # Pregnancies Multiple births # of living children 1 Past Pregnancies Del. Date Name GA/Weeks Outcome Route Bth Weight Infant Gen Labor Lgth Anesthesia Del Dejah Provider FOB 08/03/21 Adams 39 live - full term 8lbs 2 oz Male epidural [place] Visit Details Expected Delivery Route/Plan plan TOLAC patient counseled regarding risks/benefits of trial of labor versus repeat uriel sirena. ACOG/uptodate education given to patient. 68 % likelihood of success per calculator TOLAC consent form signed: completed. Labor Preferences- CB/BF classes: no labor support person: Riley labor intervention preferences: [] pain management options preferred: limited intervention if possible cut cord/dad catch: cord : yes PP control planned: discussed discussed possible routes of delivery and associated risks: [] special requests: [] Plans Covid status: [] Flu vaccine: declines Tdap vaccine: given Rhogam: given LARC form signed: yes Problem list reviewed and updated with the most current plan of care details and appropriate orders placed. Relevant counseling for the gestational age provided. Continue routine care and follow up unless otherwise noted in visit notes/problem list details OB Flowsheet Initial Weight: Not Recorded Date -?-?-?-?-?-?-?-?-?-?-?-?- EGA Weight BP Urine Prot -?-?-?-?-?-?-?-?-?-?-?-?- Glucose FHR FuHt Pres Dilation -?-?-?-?-?-?-?-?-?-?-?-?- Effaced St Visit Note 10/03/22 -?-?-?-?-?-?-?-?-?-?-?-?- 7w 3d 143 lb 6 oz 124/82 -?-?-?-?-?-?-?-?-?-?-?-?- 144 -?-?-?-?-?-?-?-?-?-?-?-?- JV- CRL measures 7 weeks 0 days however there is a long hypoechoic structure adjacent to the gestational sac that represents either a large WYATT, or a bicornuate uterus, or could also be a vanishing twin. ordering a formal scan 10/19/22 -?-?-?-?-?--?-?-?-?-?-?-?- 9w 5d 144 lb 2 oz 112/68 Nega tive -?-?-?-?-?-?-?-?-?-?-?-?- Negative 160 -?-?-?-?-?-?-?-?-?-?-?-?- SM- no vb crampi ng, repeat US shows resolving subchorionic hematoma 11/14/22 -?-?-?-?-?-?-?-?-?-?-?-?- 13w 3d 145 lb 2 oz Negative -?-?-?-?-?-?-?-?-?-?-?-?- Negative 155 -?-?-?-?-?-?-?-?-?-?-?-?- kw- no vb/crampi ng. no concerns. formal US next week and anatomy scheduled for December. declines flu vaccine 12/13/22 -?-?-?-?-?-?-?-?-?-?-?-?- 17w 4d 145 lb 6 oz 126/83 Nega tive -?-?-?-?-?-?-?-?-?-?-?-?- Negative 150 -?-?-?-?-?-?-?-?-?-?-?-?- JV- no complaint s today. has anatomy scan ordered. wants to . 01/10/23 -?-?-?-?-?-?-?-?-?-?-?-?- 21w 4d 153 lb 8 oz 135/82 Nega tive -?-?-?-?-?-?-?-?-?-?-?-?- Negative 156 -?-?-?-?-?-?-?-?-?-?-?-?- JV- no complaint s. settled on the name Octavio normal anatomy scan. 02/06/23 -?-?-?-?-?-?-?-?-?-?-?-?- 25w 3d 157 lb 126/84 Negative -?-?-?-?-?-?-?-?-?-?-?-?- Negative 155 -?-?-?-?-?-?-?-?-?-?-?-?- MH-No VB, LOF. G oclaudia Fm. Denies concerns 02/26/23 -?-?-?-?-?--?-?-?-?-?-?-?- 28w 2d 156 lb 8 oz 122/79 Nega tive -?-?-?-?-?-?-?-?-?-?-?-?- Negative 140 28 -?-?-?-?-?-?-?-?-?-?-?-?- LC- no vb/ctx/lo f. good fm. accepts tdap. rhogam today.larc signed. 03/14/23 -?-?-?-?-?-?-?-?-?-?-?-?- 30w 4d 159 lb 8 oz 133/87 Nega tive -?-?-?-?-?-?-?-?-?-?-?-?- Negative 140 31 -?-?-?-?-?-?-?-?-?-?-?-?- JV- no lof, vagi nal bleeding , or dec fm. consent signed. wants IGNACIO to be her radar scientist. will be gone for most of including her due date week at [facility]. She is hoping she will go into labor after 40 weeks. success rates of after 40 weeks discussed. 03/28/23 -?-?-?-?-?-?-?-?-?-?-?-?- 32w 4d 160 lb 124/85 Negative -?-?-?-?-?-?-?-?-?-?-?-?- Negative 144 33 -?-?-?-?-?-?-?-?-?-?-?-?- JV- no complaint s today. + FM. no lof or vaginal bleeding. 04/09/23 -?-?-?-?-?-?-?-?-?-?-?-?- 34w 2d 164 lb 4 oz 128/82 Nega tive -?-?-?-?-?-?-?-?-?-?-?-?- Negative 148 34 -?-?-?-?-?-?-?-?-?-?-?-?- MH-NO VB, LOF. G ood FM. Denies concerns 04/23/23 -?-?-?-?-?-?-?-?-?-?-?-?- 36w 2d 163 lb 6 oz 118/82 -?-?-?-?-?-?-?-?-?-?-?-?- 140 36 0 -?-?-?-?-?-?-?-?-?-?-?-?- 20 -3 LC- no vb/ ctx/lof. good fm. denies concerns. will be away may 20- with . will desire membrane sweep at 39 weeks.gbs collected 04/30/23 -?-?-?-?-?-?-?-?-?-?-?-?- 37w 2d 166 lb 8 oz 128/82 Nega tive -?-?-?-?-?-?-?-?-?-?-?-?- Negative 138 37 1 -?-?-?-?-?-?-?-?-?-?--?-?- 20 -3 LC- no vb/ ctx/lof. good fm. 05/07/23 -?-?-?-?-?-?-?-?-?-?-?-?- 38w 2d 167 lb 132/89 Negative -?-?-?-?-?-?-?-?-?-?-?-?- Negative 125 38 Cephalic 1 .5 -?-?-?-?-?-?-?-?-?-?-?-?- 60 -2 JV- no lof , vaginal bleeding, or dec fm. plan is for tolac. 05/14/23 -?-?-?-?-?-?-?-?-?-?-?-?- 39w 2d 169 lb 126/90 Negative -?-?-?-?-?-?-?-?-?-?-?-?- Negative 145 38 Cephalic 2 .5 -?-?-?-?-?-?-?-?-?-?-?-?- 60 -1 SM- cervix posterior but head is low, no vb lof good fm no regular ctx membranes swept. will repeat bp. ROS Constitutional Constitutional: Denies change in weight, fatigue, fever(s), headache(s), poor appetite or weakness Eyes Eyes: Denies blurry vision, change in vision, seeing flashes or spots in vision ENT HEENT: Denies dizziness, headache(s), loss taste/smell or sore throat Cardiovascular Cardiovascular: Denies chest pain, dizziness, dyspnea, irregular heart rhythm, leg edema, palpitations, rapid heart rate or vomiting Respiratory/Chest Respiratory/Chest: Denies chest tightness, cough, dyspnea or breast pain Gastrointestinal Gastrointestinal: Denies abdominal pain, anorexia, constipation, cramping, diarrhea, hemorrhoids, vomiting or weight changes Genitourinary Genitourinary: Denies dysuria, flank pain, genital lesions, genital pain, urinary frequency or urinary urgency Musculoskeletal Musculoskeletal: Denies back pain, difficulty walking, joint pain, limited range of motion, muscle cramps or numbness Integumentary Integumentary: Denies lesions or unusual bruising Neurologic Neurologic: Denies abnormal movements, abnormal speech, dizziness, numbness, seizure-like activity or syncope Psychiatric Psychiatric: Denies anxiety, behavioral changes, change in appetite, change in libido, cognitive impairment, confusion, depression, difficulty concentrating, hallucinations or suicidal thoughts Endocrine Endocrinology: Denies excessive sweating, polydipsia or polyuria Hematologic/Lymphatic Hematologic/Lymphatic: Denies easy bleeding, easy bruising or lymphadenopathy Allergic/Immunologic Allergic/Immunologic: Denies itchy eyes, lip swelling, seasonal rhinorrhea, rhinitis, throat swelling, tongue swelling, eczemia, wheezing or asthma Vital Signs Vital Signs Vital Signs: 05/16/23 20:32 05/16/23 20:32 05/16/23 20:32 Pulse Rate 98 Respiratory Rate 16 Blood Pressure BP Systolic BP Diastolic Pulse Ox 99 05/16/23 20:36 05/16/23 20:36 05/16/23 20:43 Pulse Rate 86 Respiratory Rate Blood Pressure 146/86 H 149/90 H BP Systolic 146 149 BP Diastolic 86 90 Pulse Ox 05/16/23 20:43 05/16/23 20:58 05/16/23 20:58 Pulse Rate 88 85 Respiratory Rate Blood Pressure 142/90 H BP Systolic 142 BP Diastolic 90 Pulse Ox 05/16/23 21:47 05/16/23 21:47 Pulse Rate 107 H Respiratory Rate Blood Pressure 164/101 H BP Systolic 164 BP Diastolic 101 Pulse Ox Weight Weight: 169 lb 3.2 oz Body Mass Index (BMI) 28.1 Physical Exam Const alert, oriented x3, no apparent distress and healthy appearing General Appearance: cooperative; Negative for anxious HEENT normocephalic Face and Sinus: normal facial exam Eyes EOMs intact bilaterally and no scleral icterus General Eye: normal appearance of both eyes Neck full ROM and supple Lymph Lymphatic: no lymphadenopathy noted Chest Chest: abnormal inspection of the chest Resp normal respiratory effort Effort and Inspection: able to speak in complete sentences Cardio regular rate GI soft to palpation and non-tender Inspection: gravid Palpation: soft; Negative for tender Back/Spine no CVA tenderness Extremity normal to inspection, full ROM and no clubbing, cyanosis or edema General Extremity: Negative for calf tenderness or edema Skin Lesions: no lesions Rashes: no rashes Psych mental status grossly normal Labs Labs Labs: Blood Type O NEGATIVE Antibody Screen NEGATIVE Hct 33.3 % (37-47) L Hgb 10.8 g/dL (12.0-15.0) L Obstetrics Ultrasound Syphilis Total Ab Non-reactive Rubella IgG Antibody Reactive (Nonreactive) Hep Bs Antigen Non-Reactive (Nonreactive) Hepatitis C Antibody Non-Reactive (Nonreactive) Chlamydia DNA ([place]) Negative (Negative) N.gonorrhoeae DNA ([place]) Negative (Negative) HIV 1&2 Antibody Non-Reactive (Nonreactive) Glucose 1 Hr 50 gm 142 mg/dL (70-140) H Gest Glucose Tolerance MG/DL Assessment & Plan (1) Mild pre-eclampsia in third trimester: (2) : QUALIFIERS: Weeks of gestation: 39 weeks Qualified Code(s): Z3A.39 - 39 weeks gestation of COMMENT: GBS negative, anatomy nl, declines NIPT, carrier screening. (3) Rh negative status during : QUALIFIERS: Trimester: third trimester Qualified Code(s): O26.893 - Other specified related conditions, third trimester; Z67.91 - Unspecified blood type, Rh negative COMMENT: rhogam at 28 weeks and PRN for bleeding (4) History of gestational diabetes in prior , currently : COMMENT: nl GCT (5) History of delivery: COMMENT: [place] plan TOLAC. (6) Supervision of high risk , antepartum: COMMENT: PRR JADA 05/13/23 PC [place], Spouse Riley PLAN: Plan recommendation is for delivery. She is very tearful stating that she would like a trial of labor before jumping into a section. plan TOLAC patient counseled regarding risks/benefits of trial of labor versus repeat . ACOG/uptodate education given to patient. 68 % likelihood of success per calculator TOLAC consent form signed: completed. Plan is to start with a hartley balloon + pitocin , then arom.
[2023-05-16 22:04] LABS: AST(SGOT) 16 U/L (15-37); Alanine Aminotransfer ALT/SGPT 18 U/L (13-56); Creatinine, Serum 0.55 mg/dL (0.55-1.02); EST Glomerular Filtration Rate 138 mL/min (>60); Est Glom Filt Rate - Afr Amer 167 mL/min (>60); Estimated Creatinine Clearance 156.02 ml/min; Uric Acid 3.1 mg/dL (2.6-6.0)
[2023-05-16 22:34] LABS: Syphilis Antibodies Non-reactive
[2023-05-16] MEDS: Lactated Ringers 1,000 ML 50 ML IV (22:35)
[2023-05-16] MEDS: Oxytocin 15 Units/NS 250ml 15 UNITS/250 ML IV.SOLN 2 UNITS IV (23:07)
[2023-05-17] VITALS (66 sets, daily range): BP systolic 90–141; BP diastolic 51–100; PULSE 85–128; RESP 16–18; TEMP 36.2–37.6; O2SAT 80–100
--- NOTE | 2023-05-17 05:29 | PCM.PN.BLA ---
Progress Note pt is sleeping, on side with peanut ball. States is starting to feel some pain now. She was refusing AROM all night but now consents as pitocin is at 12 mu/min current tracing: FHT: Moderate variability reactive no decelerations category I tracing [place]: q 2-3 min Contractions cx: unchcanged from initial exam 4cm but is more effaced and better applied to cervix better. AROM performed with scan clear fluid return. reviewed tracing abnormalities since last note: no changes A/P: ToLAC minimal change in cervix over night despite 12 mu/min of pitocin and frequent contractions. AROM performed. if no change in 2 hours, plan to place internal monitors to calculate MVUs
[2023-05-17] MEDS: LACTATED RINGERS 500 ML 999 ML IV ×2 (06:35→08:21)
[2023-05-17] MEDS: fentaNYL-bupivacaine (epidural) 100 ML BAG EPIDURAL (07:15)
[2023-05-17] MEDS: 0.9% Saline Lock 10 ML Syringe IV ×2 (10:06→18:16)
[2023-05-17] MEDS: Ondansetron 4 MG/2 ML Vial IV (10:06)
[2023-05-17] MEDS: Oxytocin 15 Units/NS 250ml 15 UNITS/250 ML IV.SOLN 83 UNITS IV (11:11)
--- NOTE | 2023-05-17 11:51 | OP.PCM_ITS ---
Assessment & Plan (1) Mild pre-eclampsia in third trimester: (2) : QUALIFIERS: Weeks of gestation: 39 weeks Qualified Code(s): Z3A.39 - 39 weeks gestation of COMMENT: GBS negative, anatomy nl, declines NIPT, carrier screening. (3) Rh negative status during : QUALIFIERS: Trimester: third trimester Qualified Code(s): O26.893 - Other specified related conditions, third trimester; Z67.91 - Unspecified blood type, Rh negative COMMENT: rhogam at 28 weeks and PRN for bleeding (4) History of gestational diabetes in prior , currently : COMMENT: nl GCT (5) History of delivery: COMMENT: [place]-FTP plan TOLAC. (6) Supervision of high risk , antepartum: COMMENT: PRR JADA 05/13/23 PC [place], Spouse Riley Maternal Data Information JADA Calculator Estimated Delivery Date Method Current WG Current Estimate 05/19/23 Ultrasound #1 39w 5d Other Estimates 05/13/23 LMP (Certain) 40w 4d Vaginal Delivery Operative Information Pre-Operative Diagnosis: see a/p diagnoses Post-Operative Diagnosis: same Surgery / Procedure Performed: Type of Anesthesia: Epidural Special Medications: none Estimated Blood Loss: 200 Fluids Replaced: crystalloid Findings Description of Procedure: Patient began pushing and delivered the head in the CYN presentation. The head was delivered atraumatically. The anterior and posterior shoulders delivered without complication followed by the rest of the and the was placed on the maternal abdomen. Delayed cord clamping was employed for approximately 60 seconds. Cord was clamped and cut and gentle traction was applied to the cord and the placenta delivered spontaneously immediately following it was noted to be intact with three-vessel cord. The perineum and vagina were inspected and noted to have a first degree perineal laceration which was repaired in the usual fashion with 3-0 vicryl rapide.. EBL was 200 cc. Patient and tolerated delivery well. Amniotic Fluid Description: Clear Placental Delivery Description: Spontaneous Placenta Disposition: [facility] Cord Vessel Description: 3 Vessels Cord Entanglement: None Delayed Cord Clamping: Yes Post Vaginal Delivery Medications Given After Delivery: IV Pitocin Episiotomy Description: None Complication Complications: None Multi Select Codes Urinary/Genital Urinary/Genital CPT Codes: 41955 [facility]
--- NOTE | 2023-05-17 11:54 | DCINST_ITS ---
Discharge Instructions Diet Discharge Diet: No restrictions Activity Discharge Activity: Return to Normal Activity, May Not Drive (while taking narcotic pain medications.) and May Shower May resume sexual activity in: 4-6 weeks Dressing / Incision Call your doctor if your incision/area has: Continuous Slow Oozing, Sudden Increased Bleeding, Increased Pain/ Swelling, Increased Redness and Foul Smelling Discharge Follow Up Care Please Follow Up With: Annette Hernandez MD When: Call [phone] to make an appointment with your doctor in 6 weeks. If you had elevated blood pressure or 4th degree laceration, you will need to be seen in 2 weeks. Test Results: Test results from this visit will be discussed in further detail at your follow- up appointment, if applicable. Discharge Plan Admission Admit Date/Time: 05/16/23 21:45 Attending Provider: Annette Hernandez Primary Care Provider: Katharina Stahl Discharge Orders/Prescriptions Prescriptions: No Action DHA 200 mg capsule PO Referrals / Follow Up: Katharina Stahl MD [Primary Care Provider] - Disposition Disposition (needs filled in before D/C Order can be placed): Home, Self Care
[2023-05-17] MEDS: Naproxen 500 MG Tablet PO (16:18)
[2023-05-17] MEDS: Rho(D) Immune Globulin 300 MCG (1500 Unit) Syringe IV (18:15)
[2023-05-17] MEDS: Acetaminophen 500 MG Tablet 1000 MG PO (20:18)
[2023-05-18 01:00] VITALS: BP 130/83; PULSE 75; RESP 16; TEMP 36.8; O2SAT 99
[2023-05-18 05:15] VITALS: BP 134/81; PULSE 91; RESP 16; TEMP 37.1; O2SAT 96
--- NOTE | 2023-05-18 05:39 | PCM.PN.OB ---
Subjective Subjective Patient doing well without complaints. Tolerating PO. Ambulating and voiding without difficulty. feeding well. Denies chest pain, shortness of breath, calf pain/swelling, fevers, chills, lightheadedness. Objective Data Objective Data Vital Signs: Vital Signs Temp Pulse Resp BP Pulse Ox O2 Del Method 98.7 F 91 16 134/81 H 96 Room Air 05/18/23 05:15 05/18/23 05:15 05/18/23 05:15 05/18/23 05:15 05/18/23 05:15 05/18/23 05:15 Oxygen Delivery Method Room Air Weight: 169 lb 3.2 oz Body Mass Index (BMI) 28.1 Intake & Output: Intake and Output for Last 24 Hours 05/16/23 05/17/23 05/18/23 23:59 23:59 23:59 Intake Total 2500.00 / 2500.00 Output Total 1800 / 1800 Balance 700.00 / 700.00 Lab / Micro Data 05/16/23 21:20 05/16/23 21:20 Labs: Laboratory Results - last 24 hr 05/16/23 21:20: Blood Type O NEGATIVE, Antibody Screen NEGATIVE 05/17/23 13:45: Screen NEGATIVE, Baby's Blood Type O POSITIVE, Baby's ABY NEGATIVE ROS Constitutional Constitutional: Reports systems reviewed and no addt'l complaints, except as documented Cardiovascular Cardiovascular: Reports systems reviewed and no addt'l complaints, except as documented Respiratory/Chest Respiratory/Chest: Reports systems reviewed and no addt'l complaints, except as documented Gastrointestinal Gastrointestinal: Reports systems reviewed and no addt'l complaints, except as documented Physical Exam Const alert, oriented x3 and no apparent distress HEENT Head and Scalp: atraumatic Resp normal respiratory effort GI soft to palpation and non-tender Bimanual Exam - Vag & Uterus: uterus non-tender Uterus Palpation: uterus fundus firm (below Umbilicus) Assessment & Plan (1) Vaginal after : COMMENT: SM girl [place] preeclampsia PLAN: Plan s/p PPD # 1 1. routine post delivery care 2. breast feeding- support given 3. rh negative give rhogam PRN 4. rubella immune
[2023-05-18] MEDS: Naproxen 500 MG Tablet PO (07:32)
[2023-05-18 07:35] VITALS: BP 132/81; PULSE 96; RESP 16; TEMP 36.5; O2SAT 96
[2023-05-18 11:40] VITALS: BP 137/93; PULSE 94; RESP 16; TEMP 36.5; O2SAT 96
[2023-05-18 12:35] VITALS: RESP 16
--- NOTE | 2023-05-22 16:02 | NURSING ---
Follow up phone call performed-- pt. denies s+s of complications. Vaginal bleeding WNL. going well, some clusterfeeding. Sometimes takes long breaks at night-- sleeping 5 hrs at a time sometimes. Interested in visit. No questions or concerns.
--- NOTE | 2023-08-21 09:54 | NURSING ---
edited /para for accuracy
== END 2023-05-18 12:35 | disposition home or self-care (01) | DRG 807 ==
LOC: WPOUT 21:48 → WP 21:48
PROVIDERS: Obstetrics & Gynecology; Admitting Provider Registered Nurse; PCP Internal Medicine; Referring Provider Obstetrics & Gynecology; Visit Provider Obstetrics & Gynecology
DX: O34.219 Maternal care for unspecified type scar from previous cesarean delivery (principal); Z37.0 Single live birth; O70.0 First degree perineal laceration during delivery; Z3A.39 39 weeks gestation of pregnancy; Z86.39 Personal history of other endocrine, nutritional and metabolic disease
CPT/HCPCS: 59025; 59050; 82565; 82570; 84156; 84450; 84460; 84550; 85027; 85461; 86780; 86850; 86900; 86901; 90384; 99221; J7120; A4216; G0378; J2405; J2790; J2791

== ENCOUNTER → 2024-07-28 | Outpatient (CLI) | payer OTHER, SELFPAY ==
[2024-07-28 09:11] LABS: Absolute Lymphocyte Count 2.36 X10^3/uL (0.83-4.51); Absolute Neutrophil Count 3.3 X10^3/uL (2.0-7.7); Basophil# 0.05 X10^3/uL; Basophil% 0.8 % (0-1); Eosinophil# 0.15 X10^3/uL; Eosinophils% 2.4 % (0-5); Hematocrit 41.8 % (37-47); Hemoglobin 13.9 g/dL (12.0-15.0); Lymphocyte # 2.36 X10^3/ul (0.83-4.51); Lymphocyte % 37.1 % (19-41); Mean Corp Hgb Conc 33.3 g/dL (32-36); Mean Corpuscular Hgb 29.6 pg (27.0-32.0); Mean Corpuscular Volume 89.1 fL (81-99); Mean Platelet Vol. 9.9 fl (6.2-12.0); Monocyte# 0.49 X10^3/uL; Monocyte% 7.7 % (0-10); NRBC Flagged by Analyzer 0 % (0-5); Neutrophil # 3.29 X10^3/uL (2.7-7.7); Neutrophil % 51.7 % (47-70); Platelet Count 287 K/mm3 (150-450); RBC Distribution Width CV 13.7 % (11.6-14.6); RBC Distribution Width SD 44.5 fl (35.1-43.9); Red Blood Count 4.69 M/mm3 (4.2-5.4); White Blood Count 6.4 K/mm3 (4.4-11.0)
[2024-07-28 10:32] LABS: Cholesterol 187 mg/dL (<=200); Glucose 89 mg/dL (70-99); High Density Lipoprotein 41 mg/dL; Low Density Lipoprotein Calc. 117 mg/dL; Triglycerides 146 mg/dL; Very Low Density Lipoprotein 29 mg/dL (5-40); cholesterol:hdl ratio screen 4.54
[2024-07-28 10:46] LABS: Vitamin D,25 Hydroxy 43.1 ng/mL (30-100)
== END | disposition home or self-care (01) ==
LOC: PAVLAB 08:55
PROVIDERS: Referring Provider Obstetrics & Gynecology; Visit Provider Obstetrics & Gynecology
DX: D64.9 Anemia, unspecified (principal); Z13.220 Encounter for screening for lipoid disorders; Z13.29 Encounter for screening for other suspected endocrine disorder; Z13.1 Encounter for screening for diabetes mellitus
CPT/HCPCS: 36415; 80061; 82306; 82947; 84443; 85025